=== PATIENT | female | born 1955 | race Caucasian/White ===

== ENCOUNTER 2022-03-03 18:33 | Inpatient (IN) | payer MEDICAID, SELFPAY ==
[2022-03-03 18:20] VITALS: BP 147/76; PULSE 69; RESP 16; TEMP 37; O2SAT 95; BMI 22.8
--- NOTE | 2022-03-03 18:40 | ECG_ITS ---
APPROVED REPORT Exam: Resting ECG HR:68 bpm ECG Measurements Heart Rate 68 AXES IN 223 P 53 QRSd 102 QRS 98 QT 429 T -17 QTc 447 Conclusion SINUS RHYTHM WITH FIRST DEGREE AV BLOCK BORDERLINE RIGHT AXIS DEVIATION [QRS AXIS > 90] ST DEVIATION AND MODERATE T-WAVE ABNORMALITY, CONSIDER LATERAL ISCHEMIA [-0.1+ mV T-WAVE IN I/aVL/V5/V6] ABNORMAL ECG UNCONFIRMED REPORT Electronically signed by : Dominguez Ortiz MD 03/06/2022 08:07:44
--- NOTE | 2022-03-03 18:50 | XR_ITS ---
PROCEDURE INFORMATION: Exam: XR Bilateral Hips Exam date and time: 03/03/2022 7:15 PM Age: 66 years old Clinical indication: Injury or trauma; Fall; Blunt trauma (contusions or hematomas); Left; Hip; Injury date: 03/03/22; Additional info: Fall-left femur pain after a fall - trauma TECHNIQUE: Imaging protocol: XR bilateral hips. Views: 2 views of hips with pelvis when performed. COMPARISON: No relevant prior studies available. FINDINGS: Bones/joints: There is an acute mildly comminuted fracture involving the left femoral neck. No evidence for dislocation of the femoral head. There is superior positioning of the distal femur by approximately 2.5 cm. There is mild varus angulation. No evidence of right hip fracture. There are mild degenerative changes of the symphyseal pubic joint. There are mild degenerative changes of the sacroiliac joints. There are mild degenerative changes in the right hip joint. Ovoid focus of increased density measuring 3 by 1.7 cm overlying the left ischium is seen on the cross-table lateral view anterior to the coccyx suggesting it may reflect potentially soft tissue calcification or potentially calcified peritoneal lesion. Correlate clinically. Joint spaces appear otherwise preserved. Soft tissues: No significant soft tissue edema. No subcutaneous emphysema or radiopaque foreign bodies. IMPRESSION: Acute mildly comminuted fracture of the left femoral neck.
--- NOTE | 2022-03-03 18:50 | XR_ITS ---
PROCEDURE INFORMATION: Exam: XR Left Femur Exam date and time: 03/03/2022 7:19 PM Age: 66 years old Clinical indication: Injury or trauma; Fall; Blunt trauma; Hip; Left; Injury date: 03/03/22; Additional info: Fall-left femur pain after a fall - trauma TECHNIQUE: Imaging protocol: XR Left femur. Views: 2 views. COMPARISON: CR XR HIP BI W PEL1V 03/03/2022 7:15 PM FINDINGS: Bones/joints: Acute fracture of the left femoral neck is incompletely visualized and more optimally evaluated on associated radiographs of the hip from the same date and time. Please reference that report for additional information. The remainder of the femur is without evidence of acute fracture. Joint spaces appear preserved. There is mild diffuse osteopenia. Soft tissues: No significant soft tissue edema. No subcutaneous emphysema or radiopaque foreign bodies. Mild atherosclerotic vascular calcifications involve the femoral arteries.There are mild degenerative changes of the symphyseal pubic joint. IMPRESSION: Incompletely visualized is the previously described acute fracture involving the left femoral neck. No additional acute fractures are seen.
[2022-03-03 19:00] VITALS: BP 159/77; PULSE 70; O2SAT 96
[2022-03-03 19:05] LABS: Basophils % 0.2 % (0.1-2.0); Eosinophils % 0.3 % (0.1-12.0); Hematocrit 28.5 % (37.0-47.0); Hemoglobin 9.5 g/dL (12.2-16.2); Lymphocytes # 0.5 K/mm3 (0.7-4.5); Lymphocytes % 12.5 % (10-50); Mean Corpuscular HGB Conc 33.2 g/dL (31.8-35.4); Mean Corpuscular Hemoglobin 32.1 pg (27.0-31.2); Mean Corpuscular Volume 96.6 fl (81-99); Monocytes # 0.2 K/mm3 (0.1-1.0); Monocytes % 4.9 % (1.7-9.3); Neutrophils # 3.1 K/mm3 (1.8-7.8); Neutrophils % 82.1 % (37.0-80.0); Platelet Count 72 K/mm3 (142-424); Red Blood Count 2.95 M/mm3 (4.20-5.40); Red Cell Distribution Width 16.3 % (11.5-17.5); White Blood Count 3.8 K/mm3 (4.8-10.8)
[2022-03-03 19:09] LABS: Chloride 107 mmol/L (98-107); Potassium 3.6 mmoL/L (3.5-5.1); Sodium 137 mmol/L (136-145)
[2022-03-03 19:12] LABS: Alanine Aminotransferase 33 U/L (12-78); Albumin Level 3.5 g/dl (3.5-5.0); Alkaline Phosphatase 149 U/L (38-126); Anion Gap 12.6 mEq/L (5-15); Aspartate Amino Transferase 51 U/L (14-36); Bilirubin,Total 0.9 mg/dl (0.2-1.3); Blood Urea Nitrogen 53 mg/dl (7-17); Calcium 8.8 mg/dl (8.4-10.2); Carbon Dioxide 21 mmol/L (22.0-30.0); Creatinine Clearance Estimated 16 mL/min (50-200); Estimated Glomerular Filt Rate 16 ml/min (>60); GFR (African American) 20 ML/MIN (>60); Globulin 3.4 g/dL (1.3-3.2); Glucose 386 mg/dl (74-100); Total Protein,Serum 6.9 g/dl (6.3-8.2)
--- NOTE | 2022-03-03 19:39 | XR_ITS ---
PROCEDURE INFORMATION: Exam: XR Chest Exam date and time: 03/03/2022 7:33 PM Age: 66 years old Clinical indication: Other: Trauma protocol; Additional info: Fall TECHNIQUE: Imaging protocol: XR of the chest. Views: 4 or more views. COMPARISON: No relevant prior studies available. FINDINGS: Tubes, catheters and devices: Right IJ central venous catheter is present, distal tip overlying the right atrium. Lungs: There is mild elevation the right hemidiaphragm. A few calcified granulomata are present. The lungs appear clear. No focal areas of consolidation. Pleural spaces: No pleural effusions or appreciable adenopathy. Negative for pneumothorax. Heart/Mediastinum: Cardiac silhouette and pulmonary vasculature are within range of normal. Surgical clips in the right upper quadrant indicate cholecystectomy. Bones/joints: There is no evidence of acute fracture. There is a fracture involving the left proximal humeral neck which has an appearance suggesting remote process. Correlate. IMPRESSION: Negative for an acute cardiopulmonary abnormality.
--- NOTE | 2022-03-03 19:39 | HMH.EDGENADL ---
ED Disposition Clinical Impression: Fracture of femoral neck, left Qualifiers: Encounter type: initial encounter Fracture type: closed Qualified Code(s): S72.002A - Fracture of unspecified part of neck of left femur, initial encounter for closed fracture Disposition: Admitted As Inpatient Condition on Discharge: Fair Referrals: Provider,Referral, [Primary Care Provider] - - Critical Care Critical Care Time: No Attestation: On , the high probability of a clinically significant, sudden or life threatening deterioration of the following system(s) required my full and direct attention, intervention and personal management. The time I documented below is in addition to time spent performing reported procedures but includes the following listed in this critical care notation. Medical Decision Making - Medical Records Medical records reviewed: Yes: I reviewed the patient's medical records. - Edu Inquiry Pt receiving controlled substance: Yes (For acute pain) Edu was queried for this patient: No Risks and benefits of using a controlled substance: were not discussed with pt by me Vital Signs: 03/03/22 18:20 03/03/22 19:00 03/03/22 20:00 Temperature 98.6 F Temperature Source Oral Pulse Rate 70 76 Pulse Rate [Right] 69 Respiratory Rate 16 Blood Pressure 159/77 H 177/92 H Blood Pressure [Right Arm] 147/76 H Blood Pressure Mean 104 Blood Pressure Mean [Right Arm] 99 Blood Pressure Source [Right Arm] Automatic Cuff Blood Pressure Position [Right Arm] Sitting 02 Sat by Pulse Oximetry 95 96 97 Oxygen Delivery Method Room Air Room Air Room Air 03/03/22 20:30 Temperature Temperature Source Pulse Rate 75 Pulse Rate [Right] Respiratory Rate Blood Pressure 172/77 H Blood Pressure [Right Arm] Blood Pressure Mean Blood Pressure Mean [Right Arm] Blood Pressure Source [Right Arm] Blood Pressure Position [Right Arm] 02 Sat by Pulse Oximetry 95 Oxygen Delivery Method - Lab Data Lab results reviewed: Yes: I reviewed the patient's lab results. Lab Results 03/03/22 18:42: WBC 3.8 L, RBC 2.95 L, Hgb 9.5 L, Hct 28.5 L, MCV 96.6, MCH 32.1 H, MCHC 33.2, RDW 16.3, Plt Count 72 L, MPV 10.0, Neut % (Auto) 82.1 H, Lymph % (Auto) 12.5, [place] % (Auto) 4.9, Eos % (Auto) 0.3, Baso % (Auto) 0.2, Neut # (Auto) 3.1, Lymph # (Auto) 0.5 L, [place] # (Auto) 0.2, Eos # (Auto) 0.0, Baso # (Auto) 0.0 03/03/22 18:42: Sodium 137, Potassium 3.6, Chloride 107, Carbon Dioxide 21 L, Anion Gap 12.6, BUN 53 H, Creatinine 2.90 H, Estimated Creat Clear 16, Estimated GFR 16 L*, Est GFR ( Amer) 20 L, Glucose 386 H, Calcium 8.8, Total Bilirubin 0.9, AST 51 H, ALT 33, Alkaline Phosphatase 149 H, Total Protein 6.9, Albumin 3.5, Globulin 3.4 H, Albumin/Globulin Ratio 1.0 L 03/03/22 18:42: Phosphorus 4.5, Magnesium 1.7, Troponin I < 0.01 03/03/22 19:46: SARS-CoV-2 (PCR) Not detected, Influenza A Untype (PCR) Not detected, Influenza Type B (PCR) Not detected 03/03/22 19:56: Urine Color Yellow, Urine Appearance Clear, Urine pH 5.0, Ur Specific [place] 1.015, Urine Protein Trace, Urine Glucose (UA) 3+, Urine Ketones Negative, Urine Blood 1+, Urine Nitrate Negative, Urine Bilirubin Negative, Urine Urobilinogen 0.2, Ur Leukocyte Esterase Negative, Urine RBC 5-10, Urine WBC Occasional, Urine Bacteria Trace 03/03/22 20:45: PT 12.3, INR 1.10 03/03/22 20:45: Lactate 1.7 03/03/22 20:45: Ammonia 24 Result diagrams: 03/03/22 18:42 03/03/22 18:42 Orders (Tests/Meds): ED MEDICATIONS Generic Name Dose Route Start Last Admin Trade Name Freq PRN Reason Stop Dose Admin Sodium Chloride 10 ml 03/03/22 18:50 Sodium Chloride 0.9% 10ml Flush Syringe IV 04/02/22 18:49 NEEDED PRN Maintain IV Site Discontinued Medications Generic Name Dose Route Start Last Admin Trade Name Freq PRN Reason Stop Dose Admin Fentanyl Citrate 50 mcg 03/03/22 18:52 03/03/22 19:11 Fentanyl 100mcg/2ml Vial IV 03/03/22 18:53 50 m
--- NOTE | 2022-03-03 19:40 | PC.NURSE ---
Pt gone to RAD
--- NOTE | 2022-03-03 19:45 | PC.NURSE ---
Pt back from RAD
[2022-03-03 19:52] LABS: Coronavirus 19, PCR Not Detected (NotDetected); Influenza A, PCR Not Detected (NotDetected); Influenza B, PCR Not Detected (NotDetected)
[2022-03-03 20:00] VITALS: BP 177/92; PULSE 76; O2SAT 97
--- NOTE | 2022-03-03 20:00 | PC.NURSE ---
#16 joseph cath placed with immediate return of clear yellow urine.
[2022-03-03 20:01] LABS: Microscopic, Urine URINE MICROSCOPIC (MICROSCOPIC)
[2022-03-03 20:02] LABS: Appearance,Urine CLEAR (Clear); Bilirubin,Urine Negative (Negative); Blood, Urine 1+ (Negative); Color,Urine YELLOW (Yellow); Glucose,Urine (UA) 3+ (Negative); Ketones,Urine Negative (Negative); Leukocyte Esterase,Urine Negative (Negative); Nitrate,Urine Negative (Negative); Protein,Urine TRACE (Negative); Specific Gravity, Urine 1.015 (1.005-1.030); Urobilinogen,Urine 0.2 EU/dl (0.2)
[2022-03-03 20:30] VITALS: BP 172/77; PULSE 75; O2SAT 95
--- NOTE | 2022-03-03 20:34 | CT_ITS ---
PROCEDURE INFORMATION: Exam: CT Cervical Spine Without Contrast Exam date and time: 03/03/2022 8:46 PM Age: 66 years old Clinical indication: Injury or trauma; Fall; Blunt trauma; Additional info: Fall, pain TECHNIQUE: Imaging protocol: Computed tomography images of the cervical spine without contrast. Radiation optimization: All CT scans at this facility use at least one of these dose optimization techniques: automated exposure control; mA and/or kV adjustment per patient size (includes targeted exams where dose is matched to clinical indication); or iterative reconstruction. COMPARISON: CR XR CHEST AP 03/03/2022 7:33 PM FINDINGS: Bones/joints: Loss of normal curvature of the spine, alignment of the vertebral bodies is grossly normal. No evidence of acute compression fracture or deformity in the cervical spine. No displaced fracture involving the vertebral bodies or their posterior elements. Facet joints are normally aligned without facetal dislocation or subluxation. No fracture of the dens, lateral C1-C2 articulation, atlantooccipital joints and central atlantodental joint are unremarkable. Discs/Spinal canal/Neural foramina: Chronic degenerative changes in the visualized cervical spine. Lungs: NA Soft tissues: Pre-and paravertebral soft tissues are grossly normal. Near complete opacification of the RIGHT sphenoid sinus with fluid level. IMPRESSION: 1. Chronic degenerative changes without an acute cervical spine injury or abnormality. 2. RIGHT sphenoid sinusitis.
--- NOTE | 2022-03-03 20:34 | CT_ITS ---
PROCEDURE INFORMATION: Exam: CT Head Without Contrast Exam date and time: 03/03/2022 8:46 PM Age: 66 years old Clinical indication: Injury or trauma; Fall; Blunt trauma (contusions or hematomas); Additional info: Fall, coagulopathy TECHNIQUE: Imaging protocol: Computed tomography of the head without contrast. Radiation optimization: All CT scans at this facility use at least one of these dose optimization techniques: automated exposure control; mA and/or kV adjustment per patient size (includes targeted exams where dose is matched to clinical indication); or iterative reconstruction. COMPARISON: No relevant prior studies available. FINDINGS: Brain: Moderately advanced chronic microvascular ischemic disease without acute intraparenchymal hemorrhage and no obvious acute ischemic stroke. No intra-or extra-axial fluid collection, no supra-or infratentorial mass, no mass effect or midline shift. Cerebral ventricles: Dilated ventricles, sulci and basal cisterns due to generalized atrophy/chronic ischemic changes without evidence of hydrocephalus. Paranasal sinuses: Near complete opacification of the RIGHT sphenoid sinus with fluid level. Mastoid air cells: No mastoid effusion. Bones/joints: Visualized skull bones are grossly normal. Soft tissues: Moderately severe atherosclerotic calcification of the intra and extracranial arteries. IMPRESSION: 1. Moderately advanced chronic microvascular disease and generalized atrophy without acute intracranial abnormality. 2. No evidence of acute hemorrhage, mass lesion or obvious acute ischemic infarction. 3. RIGHT sphenoid sinusitis.
--- NOTE | 2022-03-03 20:35 | CT_ITS ---
PROCEDURE INFORMATION: Exam: CT Thoracic Spine Without Contrast Exam date and time: 03/03/2022 8:49 PM Age: 66 years old Clinical indication: Injury or trauma; Fall; Additional info: Fall, pain TECHNIQUE: Imaging protocol: Computed tomography images of the thoracic spine without contrast. Radiation optimization: All CT scans at this facility use at least one of these dose optimization techniques: automated exposure control; mA and/or kV adjustment per patient size (includes targeted exams where dose is matched to clinical indication); or iterative reconstruction. COMPARISON: CT CERVICAL SPINE WO CON 03/03/2022 8:46 PM FINDINGS: Tubes, catheters and devices: Large-bore right sided central venous catheter which is partially visualized. Partially calcified mediastinal lymph nodes. Vertebrae: Scoliosis with degenerative changes. No acute fracture. Soft tissues: Unremarkable. Vasculature: Calcified atherosclerosis. No aneurysm. Heart: Coronary artery calcifications. Gallbladder and bile ducts: Status post cholecystectomy. IMPRESSION: No acute findings.
--- NOTE | 2022-03-03 20:35 | CT_ITS ---
PROCEDURE INFORMATION: Exam: CT Lumbar Spine Without Contrast Exam date and time: 03/03/2022 8:52 PM Age: 66 years old Clinical indication: Injury or trauma; Fall; Additional info: Pain back TECHNIQUE: Imaging protocol: Computed tomography images of the lumbar spine without contrast. Radiation optimization: All CT scans at this facility use at least one of these dose optimization techniques: automated exposure control; mA and/or kV adjustment per patient size (includes targeted exams where dose is matched to clinical indication); or iterative reconstruction. COMPARISON: CT THORACIC SPINE WO CON 03/03/2022 8:49 PM FINDINGS: Vertebrae: Scoliosis. No acute fracture. Kidneys and ureters: Punctate nonobstructing renal calculi without hydronephrosis. Vasculature: Calcified atherosclerosis. No aneurysm. Soft tissues: Calcified splenic granulomas. IMPRESSION: No acute findings.
--- NOTE | 2022-03-03 20:35 | CT_ITS ---
PROCEDURE INFORMATION: Exam: CT Pelvis Without Contrast; Skeletal Exam date and time: 03/03/2022 8:55 PM Age: 66 years old Clinical indication: Pain and injury or trauma; Fall; Blunt trauma (contusions or hematomas); Left; Hip; Additional info: Hip pain, fall TECHNIQUE: Imaging protocol: Computed tomography images of the pelvis without contrast. Exam focused on the skeletal structures. Radiation optimization: All CT scans at this facility use at least one of these dose optimization techniques: automated exposure control; mA and/or kV adjustment per patient size (includes targeted exams where dose is matched to clinical indication); or iterative reconstruction. COMPARISON: CR XR HIP BI W PEL1V 03/03/2022 7:15 PM FINDINGS: Stomach and bowel: Moderate to large stool burden within the colon. No bowel obstruction. Urinary bladder: [place] Valle catheter within the urinary bladder. Arteries: Calcified atherosclerosis. No aneurysm. Bones/joints: Mildly comminuted, impacted, varus angulated fracture at the left femoral head neck junction. Soft tissues: Unre no radiopaque foreign body markable. IMPRESSION: Mildly comminuted, impacted, varus angulated fracture at the left femoral head neck junction.
[2022-03-03 20:41] LABS: Bacteria,Urine Trace /lpf; WBC,Urine Occasional #/hpf (0-3)
[2022-03-03 20:51] LABS: Magnesium 1.7 mg/dl (1.6-2.3); Phosphorous 4.5 mg/dl (2.5-4.5)
[2022-03-03 21:06] LABS: Ammonia 24 umol/L (9-30); Lactic Acid 1.7 mmol/L (0.7-2.1)
[2022-03-03 21:07] LABS: Prothrombin Time 12.3 seconds (10.1-12.5)
[2022-03-03 21:26] LABS: Troponin I < 0.01 ng/ml (0.00-0.034)
--- NOTE | 2022-03-03 21:42 | PC.NURSE ---
Dr. Barth s/w Dr. Jones
--- NOTE | 2022-03-03 22:01 | PC.NURSE ---
on phone with dr gutierrez @ this time
[2022-03-03 22:07] LABS: Activated Partial Thrombo Time 27.3 seconds (22.8-30.6)
[2022-03-03 22:19] VITALS: BMI 22.2
[2022-03-03 22:22] VITALS: BP 154/72; PULSE 76; RESP 16; TEMP 37; O2SAT 95
[2022-03-03 23:44] VITALS: BP 176/83; PULSE 82; RESP 18; TEMP 36.9; O2SAT 96
[2022-03-04] VITALS (14 sets, daily range): BP systolic 152–198; BP diastolic 63–90; PULSE 75–88; RESP 15–20; TEMP 36.8–38; O2SAT 90–96; BMI 22.2
[2022-03-04 05:13] LABS: POC Glucose,Bedside 142 (70-110)
[2022-03-04 06:06] LABS: Basophils % 0.3 % (0.1-2.0); Eosinophils # 0.1 K/mm3 (0.0-0.4); Eosinophils % 2.2 % (0.1-12.0); Hematocrit 25.9 % (37.0-47.0); Hemoglobin 8.8 g/dL (12.2-16.2); Lymphocytes # 0.6 K/mm3 (0.7-4.5); Mean Corpuscular Hemoglobin 32.4 pg (27.0-31.2); Mean Corpuscular Volume 95.4 fl (81-99); Mean Platelet Volume 8.4 fl (7.4-10.4); Monocytes # 0.3 K/mm3 (0.1-1.0); Monocytes % 7.7 % (1.7-9.3); Neutrophils # 2.3 K/mm3 (1.8-7.8); Neutrophils % 71.8 % (37.0-80.0); Platelet Count 63 K/mm3 (142-424); Red Blood Count 2.71 M/mm3 (4.20-5.40); Red Cell Distribution Width 16.3 % (11.5-17.5); White Blood Count 3.2 K/mm3 (4.8-10.8)
[2022-03-04 06:16] LABS: Prothrombin Time 12.3 seconds (10.1-12.5)
[2022-03-04 06:22] LABS: Chloride 110 mmol/L (98-107); Sodium 139 mmol/L (136-145)
[2022-03-04 06:23] LABS: Potassium 3.2 mmoL/L (3.5-5.1)
[2022-03-04 06:25] LABS: Alanine Aminotransferase 28 U/L (12-78); Alkaline Phosphatase 135 U/L (38-126); Aspartate Amino Transferase 49 U/L (14-36); Bilirubin,Total 0.8 mg/dl (0.2-1.3); Blood Urea Nitrogen 46 mg/dl (7-17); Creatinine Clearance Estimated 19 mL/min (50-200); Estimated Glomerular Filt Rate 20 ml/min (>60); GFR (African American) 25 ML/MIN (>60)
[2022-03-04 06:26] LABS: Albumin/Globulin Ratio 0.9 (1.1-1.8); Anion Gap 7.2 mEq/L (5-15); Calcium 8.5 mg/dl (8.4-10.2); Carbon Dioxide 25 mmol/L (22.0-30.0); Globulin 3.4 g/dL (1.3-3.2); Glucose 140 mg/dl (74-100); Total Protein,Serum 6.4 g/dl (6.3-8.2)
--- NOTE | 2022-03-04 07:27 | HMH.PHAVTE ---
[facility] Pharmacy VTE Monitoring - Patient Demographics Admission date: 03/03/22 Report Date: 03/04/22 Time: 07:27 Allergies/Adverse Reactions: Patient Allergies pseudoephedrine [From Actifed] Allergy (Mild, Verified 03/03/22 18:50) triprolidine [From Actifed] Allergy (Mild, Verified 03/03/22 18:50) Height: 1.52 m Weight: 51.487 kg Patient Problems: Current Active Problems Fracture of femoral neck, left (Acute) - VTE Risk Labs: VTE Related Lab Results Hgb 8.8 g/dL (12.2-16.2) L 03/04/22 05:48 Hct 25.9 % (37.0-47.0) L 03/04/22 05:48 Plt Count 63 K/mm3 (142-424) L 03/04/22 05:48 PT 12.3 seconds (10.1-12.5) 03/04/22 05:48 INR 1.10 (0.9-1.1) 03/04/22 05:48 APTT 27.3 seconds (22.8-30.6) 03/03/22 20:47 BUN 46 mg/dl (7-17) H 03/04/22 05:48 Creatinine 2.40 mg/dl (0.52-1.04) H 03/04/22 05:48 Estimated Creat Clear 19 mL/min (50-200) 03/04/22 05:48 Was VTE Risk Assessment Performed: Yes VTE Score: 5 VTE Risk Level: Low Risk - Prophylaxis VTE Prophylaxis Ordered?: Yes Types of VTE Prophylaxis: TEDS Knee High Location of Applied Device: Bilateral Lower Extremeties
--- NOTE | 2022-03-04 09:09 | HMH.HP ---
*Admission Date: 03/03/22 <Abby Chery - 03/04/22 09:37> *Chief complaint: Fall with fracture of left hip. <Abby Chery - 03/04/22 09:37> *History of present illness: Ms. Whalen is a 66-year-old female with a history of coronary artery disease, diabetes mellitus, previous stroke, liver failure, and chronic kidney disease previously on dialysis. She is followed by several specialist for each of her diseases. She presented to [facility] emergency room for evaluations per EMS after a fall at home. She states she was walking to the bathroom, lost her balance and fell. She describes usually being unsteady on her feet and uses a walker with help. She did try to ambulate without any assistance. She lives with family who immediately found her and called the ambulance when they were unable to assist her to and upright position. She had left hip plain. She denies having any chest pain or shortness of breath before or after the fall. With evaluation in the emergency room She had multiple x-rays/CTs completed to include chest x-ray which was negative for any acute process, CT of the cervical spine which showed chronic degenerative changes without an acute cervical spine injury and a right sphenoid sinusitis; Femur x-ray which indicated an acute fracture involving the left femoral neck: Head CT which indicated Moderately advanced chronic microvascular disease and generalized atrophy without any acute intracranial abnormality.;Lumbar spine CT with no acute findings;Thoracic spine CT with no acute findings ; Pelvis CT with note of the acute angulated fracture of the left femoral head. Further testing revealed a CBC with a white blood cell count of 3800 and hemoglobin of 9.5 and hematocrit of 28.5.Platelet count was noted to be 72. Blood chemistries showed low carbon dioxide at 21 BUN was 53 and creatinine was 2.9. GFR was 16. Blood sugar 386. Liver function studies with an elevated AST of 51 and alkaline phosphatase of 149.Morning was normal at 24. She received Zofran for nausea. She was admitted for further evaluation and treatment with an orthopedic consult. This a.m. patient has some left hip discomfort. She is n.p.o. with her orthopedic consult. She will also have a cardiology consult. <Abby Chery - 03/04/22 09:37> [facility] History Medical History: Reports:: Coronary Artery Disease, Cerebrovascular Accident, Diabetes Mellitus Type 2, Heart Murmur, Hyperlipidemia, Hypertension Denies:: Cancer, Diabetes Mellitus Type 1, MRSA <Abby Chery 03/04/22 09:37> *Have you ever received a pneumonia vaccine?: Yes <Abby Chery 03/04/22 09:37> *Have you received a flu vaccine this season?: Yes <Abby Chery 03/04/22 09:37> Other Medical History: Reports: Anemia, Arthritis, Cataracts, Hypothyroidism, Liver Disease, Thyroid Disease <Abby Chery 03/04/22 09:37> Laterality Cases: Bilateral: Tonsillectomy, Other <Abby Chery 03/04/22 09:37> Other Surgeries: Yes: Cardiac Catheterization, Cholecystectomy, Colonoscopy, EGD, Tubal Ligation <Abby Chery 03/04/22 09:37> Amputation: No <Abby Chery 03/04/22 09:37> Fractures: Yes (Left ankle) <Abby Chery 03/04/22 09:37> - *Social History Last grade of school completed: 11th or 12th <Abby Chery 03/04/22 09:37> Smoking Status: Never smoker <Abby Chery 03/04/22 09:37> Alcohol Intake: never <Abby Chery 03/04/22 09:37> *Occupational Status:: disabled <Abby Chery 03/04/22 09:37> Housing: house <Abby Chery 03/04/22 09:37> Household Members: family, children, caregiver <Abby Chery 03/04/22 09:37> *Travel in the last 8 weeks: None <Abby Chery 03/04/22 09:37> Family Hx:: Cancer, Coronary Artery Disease, Diabetes, Heart Attack, Hyperlipidemia, Hypertension, Stroke, Thyroid Disorder, Alcoholism <Abby Chery 03/04/22 09:37> Review of Systems - Review of Systems Review of systems:: other (Poor remote historian) <Abby Chery
--- NOTE | 2022-03-04 10:47 | HMH.ORTHOCON ---
*Admission Date: 03/03/22 <Jessica Woodard 03/04/22 10:51> *Reason for consult:: Left femoral neck fracture <Jessica Woodard 03/04/22 10:51> *History of present illness: Patient is a 66-year-old female admitted to the acute inpatient service yesterday 03/03/2022 after sustaining a fall at home. She states that she was getting out of bed to walk to the bathroom yesterday when she lost her balance and fell. She states that she had immediate pain in her left hip at that time and was unable to stand, so she was subsequently brought to the [facility] emergency room for evaluation via EMS. This morning she reports pain in her left hip but states that it is well controlled with rest and as needed pain medication. She denies any other injuries, shortness of breath, chest pain, palpitations, or distal tingling/numbness. She states that she lives at home with her son and cxzajlal-in-she and frequently uses a wheelchair to ambulate, occasionally using a walker. Her past medical history significant for coronary artery disease, diabetes mellitus, previous CVA, liver failure, and chronic kidney disease previously on dialysis. She denies any other symptoms or concerns at this time. <Jessica Woodard 03/04/22 14:18> [facility] History Medical History: Reports:: Coronary Artery Disease, Cerebrovascular Accident, Diabetes Mellitus Type 2, Heart Murmur, Hyperlipidemia, Hypertension Denies:: Cancer, Diabetes Mellitus Type 1, MRSA <Jessica Woodard 03/04/22 10:51> *Have you ever received a pneumonia vaccine?: Yes <Jessica Woodard 03/04/22 10:51> *Have you received a flu vaccine this season?: Yes <Jessica Woodard 03/04/22 10:51> Other Medical History: Reports: Anemia, Arthritis, Cataracts, Hypothyroidism, Liver Disease, Thyroid Disease <Jessica Woodard 03/04/22 10:51> Laterality Cases: Bilateral: Tonsillectomy, Other <Jessica Woodard 03/04/22 10:51> Other Surgeries: Yes: Cardiac Catheterization, Cholecystectomy, Colonoscopy, EGD, Tubal Ligation <Jessica Woodard 03/04/22 10:51> Amputation: No <Jessica Woodard 03/04/22 10:51> Fractures: Yes (Left ankle) <Jessica Woodard 03/04/22 10:51> - *Social History Last grade of school completed: 11th or 12th <Jessica Woodard 03/04/22 10:51> Smoking Status: Never smoker <Jessica Woodard 03/04/22 10:51> Alcohol Intake: never <Jessica Woodard 03/04/22 10:51> *Occupational Status:: disabled <Jessica Woodard 03/04/22 10:51> Housing: house <Jessica Woodard 03/04/22 10:51> Household Members: family, children, caregiver <Jessica Woodard 03/04/22 10:51> *Travel in the last 8 weeks: None <Jessica Woodard 03/04/22 10:51> Family Hx:: Cancer, Coronary Artery Disease, Diabetes, Heart Attack, Hyperlipidemia, Hypertension, Stroke, Thyroid Disorder, Alcoholism <Jessica Woodard 03/04/22 10:51> Review of Systems - Review of Systems Review of systems:: pertinent systems reviewed and negative unless documented below <Jessica Woodard 03/04/22 13:17> - Constitutional Denies anorexia, Denies body ache(s), Denies chills, Denies fatigue, Denies fever(s), Denies night sweats, Denies weight gain <Jessica Woodard 03/04/22 13:17> - Eyes Denies blind spots, Denies blurry vision, Denies change in vision <Jessica Woodard 03/04/22 13:17> - ENT Denies poor balance, Denies dizziness, Denies mouth pain, Denies nasal congestion, Denies nasal discharge, Denies neck lump, Denies neck pain, Denies sore throat <Jessica Woodard 03/04/22 13:17> - *Cardiovascular Denies chest pain, Denies chest pain at rest, Denies shortness of breath, Denies shortness of breath with activity, Denies radiating jaw, neck or arm pain <Jessica Woodard 03/04/22 13:17> - *Respiratory Denies chest congestion, Denies cough, Denies pain on inspiration, Denies wheezing <Jessica Woodard - 03/04/22 13:17> - *Gastrointestinal Denies abdominal pain, Denies change in stools, Denies constipation, Denies loose
--- NOTE | 2022-03-04 11:21 | CA_ITS ---
APPROVED REPORT EXAM: Comprehensive 2D, Doppler, and color-flow Echocardiogram Fitting Room Inspector: Ekaterina Mcgovern, RCS, RVS Ht: 4 ft 11 in Wt: 113lbs BSA: 1.45 BP: 198/76 mmHg Indications: PRE-OP LEFT HIP FRACTURE, CAD, CKD, CVA, MURMUR 2D Dimensions Aortic Root 2.34 cm F: 2.7 - 3.3 LA Volume 53.60 mL Left Atrium 3.13 cm F: 2.7 - 3.8 LA Volume Index 37.22 mL/m2 (M/F) 16-34 LVOT 1.58 cm (M/F) 1.5-2.5 M-Mode Dimensions RVDd 2.03 cm (0.9-2.6) LA Diam 2.85 cm (1.9-4.0) LVDd 4.41 cm (3.5-5.7) Ao Diam 3.16 cm (2.0-3.7) LVDs 2.90 cm (3.5-5.7) IVSd 0.93 cm (0.6-1.1) PWd 0.78 cm (0.6-1.1) EF (Teich) 63.50% EPSs 1.41 cm FS 34.20% EDV (Teich) 88.20 mL TAPSE 2.30 (<1.7) ESV (Teich) 32.20 mL LV Diastology E Decel Time 190.00 (160-240 msec) E/A Ratio 1.30 MED E' 6.00 (< 7 cm/sec) MED A' 8.90 cm/s E'/MED E' Ratio 20.57 (>14) LAT E' 10.50 (<10 cm/sec) LAT A' 10.20 cm/s E/LAT E' Ratio 11.75 (>14) Aortic Valve LVOT Max 111.00 (70-110 cm/s) LVOT VTI 25.31 cm AoV Peak João. 196.00 (50-130 cm/s) AO Peak GR. 15.40 mmHg AO Mean GR. 7.70 (<5 mmHg) AO VTI 44.44 (18-25 cm) CRISS (VTI) 1.12 (2.5-4.5 cm2) Mitral Valve MV A Velocity 95.00 (40-130 cm/s) E/A Ratio 1.30 MV Decel. Time 190.00 (160-240 ms) MV Mean Gr. 3.10 (<2mmHg) MV PHT 57.00 ms Pulmonary Valve PV Peak Velocity 82.00 (50-150 cm/s) OR End VMAX 200.00 cm/s Tricuspid Valve TR P. Velocity 248.00 cm/s RAP Estimate 10.00 mmHg RVSP 34.60 mmHg Left Ventricle Left atrium is mildly enlarged, left ventricle is normal size, mild concentric left ventricular hypertrophy, estimated ejection fraction 55% with no regional wall motion abnormality, grade 2 diastolic dysfunction seen with tissue Doppler evidence of raise left atrial pressure. Right Ventricle Right atrium and right ventricle are normal size and contractility. Aortic Valve Aortic valve is thickened and calcified without Doppler evidence of aortic stenosis or aortic insufficiency. Mitral Valve Mitral valve is minimally thickened, there is mild mitral regurgitation. Tricuspid Valve Tricuspid valve grossly normal, there is mild tricuspid regurgitation, calculated right ventricular systolic pressure 35 mmHg. Pulmonic Valve Pulmonic valve is poorly visualized. Great Vessels Aortic root is normal size. Inferior vena cava is poorly visualized. Pericardium No significant pericardial effusion noted. Conclusion 1. Mildly enlarged left atrium, normal left ventricular size, mild concentric left ventricular hypertrophy, estimated ejection fraction 55% with no regional wall motion abnormality, grade 2 diastolic dysfunction seen with tissue Doppler evidence of raise left atrial pressure. 2. Thickened and calcified aortic valve without significant aortic stenosis or aortic insufficiency. 3. Mild mitral and tricuspid regurgitation, calculated right ventricular systolic pressure is 35 mmHg. 4. No significant pericardial effusion noted. 5. Inferior vena cava is poorly visualized. Electronically signed by : Kyle Angelo MD 03/04/2022 20:35:51
[2022-03-04 11:27] LABS: POC Glucose,Bedside 160 (70-110)
--- NOTE | 2022-03-04 11:43 | HMH.PHAINT ---
MEDICATION RECONCILIATION COMPLETED ON PATIENT USING EXTERNAL FILL HISTORY FROM PHARMACY. -PETER YOU, MARYJOD
--- NOTE | 2022-03-04 12:00 | HMH.CNCARD ---
History of Present Illness Consult date: 03/04/22 Requesting physician: Tylor Covarrubias Consult reason: pre-op evaluation Chief complaint: left hip pain History of present illness: This is a 66-year-old white female who presented to the emergency department after a fall at home. The patient states that she was walking to the bathroom lost her balance and fell. She states that she is generally unsteady on her feet and uses a walker but tried to ambulate without assistance to the bathroom and fell. She lives with family who immediately found her and called the ambulance. The patient had immediate left hip pain. She denied any chest pain or pressure prior to the fall. She denies any shortness of breath or edema. She denies any fever, chills, nausea, vomiting, diarrhea, PND or orthopnea. Her only complaint this morning is that her left hip is hurting. She is very eager to undergo surgery to improve her pain. She does have a history of coronary artery disease, diabetes, CVA and chronic kidney disease previously on dialysis. The patient states that she no longer takes dialysis and she believes her heart doctor is in [facility]. She states that she was last seen in July and everything checked out well. [facility] History I have reviewed the patient's past medical history: Yes Medical History: Reports:: Coronary Artery Disease, Cerebrovascular Accident, Diabetes Mellitus Type 2, Heart Murmur, Hyperlipidemia, Hypertension Denies:: Cancer, Diabetes Mellitus Type 1, MRSA *Have you ever received a pneumonia vaccine?: Yes *Have you received a flu vaccine this season?: Yes Other Medical History: Reports: Anemia, Arthritis, Cataracts, Hypothyroidism, Liver Disease, Thyroid Disease Laterality Cases: Bilateral: Tonsillectomy, Other Other Surgeries: Yes: Cardiac Catheterization, Cholecystectomy, Colonoscopy, EGD, Tubal Ligation Amputation: No Fractures: Yes (Left ankle) - *Social History Last grade of school completed: 11th or 12th Smoking Status: Never smoker Alcohol Intake: never *Occupational Status:: disabled Housing: house Household Members: family, children, caregiver *Travel in the last 8 weeks: None Family Hx:: Cancer, Coronary Artery Disease, Diabetes, Heart Attack, Hyperlipidemia, Hypertension, Stroke, Thyroid Disorder, Alcoholism Meds Home Medications Medication Instructions Recorded Confirmed Type Amitriptyline HCl [Elavil 50mg 50 mg PO HS 03/03/22 03/04/22 History tablet] Atorvastatin Calcium [Lipitor 40mg 40 mg PO HS 03/03/22 03/04/22 History Tab] Insulin Glargine,Hum.rec.anlog 47 units SQ DAILY 03/03/22 03/04/22 History [Lantus Solostar 100 Units/mL 3mL flexpen] Lactulose [Lactulose 20gm/30ml 20 gm PO DAILYP PRN 03/03/22 03/04/22 History Oral Soln] Levothyroxine Sodium 50 mcg PO DAILY 03/03/22 03/04/22 History [Levothyroxine 50mcg (0.05mg) Tab] NIFEdipine [Procardia Xl] 60 mg PO DAILY 03/03/22 03/04/22 History Omeprazole [Omeprazole 40mg 40 mg PO DAILY 03/03/22 03/04/22 History Capsule] Oxycodone HCl/Acetaminophen 1 each PO TIDP PRN 03/03/22 03/04/22 History [Oxycodone-Acetaminophen 10-325] Rifaximin [Xifaxan 550mg Tablet] 550 mg PO BID 03/03/22 03/04/22 History Sertraline HCl [Zoloft] 100 mg PO HS 03/03/22 03/04/22 History Ursodiol 500 mg PO BID 03/03/22 03/04/22 History polyethylene glycoL 3350 [Miralax 17 gm PO DAILY 03/03/22 03/04/22 History Powder] Aspirin [Aspirin 81mg EC Tab] 81 mg PO DAILY 03/04/22 03/04/22 History Ergocalciferol (Vitamin D2) 50,000 units PO WEEKLY 03/04/22 03/04/22 History [Drisdol 50,000 units (1.25mg) capsule] Allergies Allergy/AdvReac Type Severity Reaction Status Date / Time pseudoephedrine Allergy Mild Verified 03/03/22 18:50 [From Actifed] triprolidine [From Actifed] Allergy Mild Verified 03/03/22 18:50 Exam Vital signs and Labs for Last 24 Hours: Temp Pulse Resp BP Pulse Ox 98.5 F 88 17 198/76 H 95
--- NOTE | 2022-03-04 12:08 | CA_ITS ---
FINAL REPORT TECHNIQUE: Color Doppler, duplex Doppler and love scale sonography of the bilateral neck arterial vasculature was performed. Velocities were measured in the carotid arteries. Stenosis evaluation based on the validated velocity criteria. CLINICAL HISTORY: right carotid bruit, cva, caD FINDINGS: The peak systolic velocity of the right common carotid artery is 113 cm/s. The peak systolic velocity of the right internal carotid artery is 139 cm/s and end diastolic velocity 37 cm/s. The ICA/CCA ratio is 1.2. A moderate amount of plaque is present. The right external carotid artery is patent. The right vertebral artery is patent with antegrade flow. The peak systolic velocity of the left common carotid artery is 94 cm/s. The peak systolic velocity of the left internal carotid artery is 135 cm/s and end diastolic velocity 20 cm/s. The ICA/CCA ratio is 1.4. A moderate amount of plaque is present. The left external carotid artery is patent.The left vertebral artery is patent with antegrade flow. IMPRESSION: Less than 50% bilateral carotid stenosis. Bilateral patent vertebral arteries with antegrade flow. Reviewed, Interpreted and Dictated by Kelby Ngo MD Transcribed by Yamile Finley Authenticated by Kelby Ngo MD on 03/04/2022 04:44:50 PM [facility]
[2022-03-04 14:17] LABS: Hemoglobin A1C 6.8 % (4.0-6.0)
--- NOTE | 2022-03-04 15:02 | DIET.NUTRFU ---
This RD spoke to patient, she triggered for stating she has chewing or swallowing issues upon admit. She did not have teeth in upon visit, but reports she wears when eating. Currently NPO for hip sx. She recalls seeing a DEALER ACCOUNTS INVESTIGATOR in the past but does not recall recommendations. She lives at home with family who prepare her meals, normally something soft. Notified nursing she may benefit from [employer]ER [employer]OUNTS INVESTIGATOR eval when oral diet is appropriate.
--- NOTE | 2022-03-04 16:43 | PC.NURSE ---
Updated family on estimated time of surgery. This RN explained to family that they may wait in the OR waiting room during surgery.
--- NOTE | 2022-03-04 16:53 | PC.NURSE ---
Pt has slept majority of this shift. Pt has c/o left hip pain x2 and has been medicated per JAN w/ favorable results. Pt remains on RA. No coughing or SOB noted. Scud placed on right leg for VTE. Del Valle cath draining cloudy, dark yellow urine Family has been updated t/o the day regarding POC and surgery time. No other acute changes.
[2022-03-04 18:30] LABS: POC Glucose,Bedside 139 (70-110)
--- NOTE | 2022-03-04 20:07 | PC.NURSE ---
Patient history and data evaluated. Consulted with Dr Jones and Dr Brooks and decision was made to delay case. Orders given. I spoke extensively with family.
[2022-03-04 21:25] LABS: Basophils % 0.1 % (0.1-2.0); Eosinophils # 0.1 K/mm3 (0.0-0.4); Eosinophils % 1.7 % (0.1-12.0); Hematocrit 29.1 % (37.0-47.0); Hemoglobin 9.6 g/dL (12.2-16.2); Lymphocytes # 0.8 K/mm3 (0.7-4.5); Lymphocytes % 14.4 % (10-50); Mean Corpuscular HGB Conc 32.9 g/dL (31.8-35.4); Mean Corpuscular Volume 94.1 fl (81-99); Mean Platelet Volume 8.4 fl (7.4-10.4); Monocytes # 0.3 K/mm3 (0.1-1.0); Monocytes % 5.3 % (1.7-9.3); Neutrophils # 4.2 K/mm3 (1.8-7.8); Neutrophils % 78.5 % (37.0-80.0); Platelet Count 86 K/mm3 (142-424); Red Blood Count 3.09 M/mm3 (4.20-5.40); Red Cell Distribution Width 15.6 % (11.5-17.5); White Blood Count 5.3 K/mm3 (4.8-10.8)
[2022-03-05] VITALS (39 sets, daily range): BP systolic 88–212; BP diastolic 40–98; PULSE 62–85; RESP 12–22; TEMP 6.1–43; O2SAT 91–97; BMI 22.1
[2022-03-05 05:59] LABS: POC Glucose,Bedside 132 (70-110)
--- NOTE | 2022-03-05 06:00 | PC.NURSE ---
Patient has been hypertensive this RN's shift. Patient responded well with the hydralazine and has improved. Patient tolerated blood transfusion and platelets well.
[2022-03-05 06:40] LABS: Chloride 109 mmol/L (98-107); Potassium 3.7 mmoL/L (3.5-5.1); Sodium 139 mmol/L (136-145)
[2022-03-05 06:43] LABS: Anion Gap 12.7 mEq/L (5-15); Basophils % 0.2 % (0.1-2.0); Blood Urea Nitrogen 36 mg/dl (7-17); Calcium 8.7 mg/dl (8.4-10.2); Carbon Dioxide 21 mmol/L (22.0-30.0); Chol/HDL Ratio 2.6 (1-3.5); Cholesterol 169 mg/dl (140-200); Creatinine Clearance Estimated 23 mL/min (50-200); Eosinophils # 0.1 K/mm3 (0.0-0.4); Eosinophils % 1.4 % (0.1-12.0); Estimated Glomerular Filt Rate 25 ml/min (>60); GFR (African American) 30 ML/MIN (>60); Glucose 145 mg/dl (74-100); HDL Cholesterol 66 mg/dl (40-60); Mean Platelet Volume 7.8 fl (7.4-10.4); Triglycerides 122 mg/dl (30-150); VLDL Cholesterol 24 mg/dL (0-40); White Blood Count 5.8 K/mm3 (4.8-10.8)
[2022-03-05 06:50] LABS: Hematocrit 31.2 % (37.0-47.0); Lymphocytes # 0.9 K/mm3 (0.7-4.5); Lymphocytes % 16.1 % (10-50); Mean Corpuscular HGB Conc 34.6 g/dL (31.8-35.4); Mean Corpuscular Hemoglobin 31.2 pg (27.0-31.2); Mean Corpuscular Volume 90.2 fl (81-99); Monocytes # 0.3 K/mm3 (0.1-1.0); Neutrophils # 4.5 K/mm3 (1.8-7.8); Neutrophils % 77.2 % (37.0-80.0); Platelet Count 129 K/mm3 (142-424); Red Blood Count 3.46 M/mm3 (4.20-5.40); Red Cell Distribution Width 15.3 % (11.5-17.5)
[2022-03-05 06:54] LABS: Direct LDL Cholesterol 53.19 mg/dL (100-129)
[2022-03-05 06:55] LABS: Potassium 3.8 mmoL/L (3.5-5.1)
[2022-03-05 07:36] LABS: Hemoglobin 10.8 g/dL (12.2-16.2)
[2022-03-05 08:04] LABS: Hematocrit 30.3 % (37.0-47.0); Hemoglobin 10.7 g/dL (12.2-16.2)
--- NOTE | 2022-03-05 08:12 | HMH.ACPN2 ---
<Abby Chery - Last Filed: 03/05/22 08:12> Internal Medicine - PN: Subj *Date: 03/05/22 *Time: 08:13 Interval history: Patient has received platelets and packed red blood cells. She has been seen by cardiology and is stable for surgery. Blood pressure was elevated and she received metoprolol and hydralazine resulting in improved blood pressure. Patient denies shortness of breath and chest pain. Her discomfort is her left hip. She is ready to go to surgery. She remains n.p.o. Laboratory data shows platelets increased to 129,000 early this a.m. hemoglobin is 10.7 hematocrit 30.3. Blood chemistry: sodium is 139 potassium is 3.8 with a chloride of 109, BUN is 36 and creatinine has improved to 2. Echo cardiogram revealed the following:Conclusion 1. Mildly enlarged left atrium, normal left ventricular size, mild concentric left ventricular hypertrophy, estimated ejection fraction 55% with no regional wall motion abnormality, grade 2 diastolic dysfunction seen with tissue Doppler evidence of raise left atrial pressure. 2. Thickened and calcified aortic valve without significant aortic stenosis or aortic insufficiency. 3. Mild mitral and tricuspid regurgitation, calculated right ventricular systolic pressure is 35 mmHg. 4. No significant pericardial effusion noted. 5. Inferior vena cava is poorly visualized. Exam Vital signs and Labs for Last 24 Hours: Temp Pulse Resp BP Pulse Ox 98.5 F 80 20 182/72 H 95 03/05/22 06:35 03/05/22 06:35 03/05/22 06:35 03/05/22 06:35 03/05/22 06:35 Laboratory Results - last 24 hr 03/04/22 11:19: POC Glucose 160 H 03/04/22 12:13: Blood Type A Positive, Antibody Screen Negative, Crossmatch (AHG) See Detail 03/04/22 12:13: Hemoglobin A1c 6.8 H 03/04/22 18:22: POC Glucose 139 H 03/04/22 20:27: WBC 5.3 D, RBC 3.09 L, Hgb 9.6 L, Hct 29.1 L, MCV 94.1, MCH 31.0, MCHC 32.9, RDW 15.6, Plt Count 86 L D, MPV 8.4, Neut % (Auto) 78.5, Lymph % (Auto) 14.4, [place] % (Auto) 5.3, Eos % (Auto) 1.7, Baso % (Auto) 0.1, Neut # (Auto) 4.2, Lymph # (Auto) 0.8, [place] # (Auto) 0.3, Eos # (Auto) 0.1, Baso # (Auto) 0.0 03/04/22 20:27: Blood Type Confirm A Positive 03/05/22 05:32: WBC 5.8, RBC 3.46 L, Hgb 10.8 L D, Hct 31.2 L, MCV 90.2, MCH 31.2, MCHC 34.6, RDW 15.3, Plt Count 129 L D, MPV 7.8, Neut % (Auto) 77.2, Lymph % (Auto) 16.1, [place] % (Auto) 5.0, Eos % (Auto) 1.4, Baso % (Auto) 0.2, Neut # (Auto) 4.5, Lymph # (Auto) 0.9, [place] # (Auto) 0.3, Eos # (Auto) 0.1, Baso # (Auto) 0.0 03/05/22 05:32: Sodium 139, Potassium 3.7, Chloride 109 H, Carbon Dioxide 21 L, Anion Gap 12.7, BUN 36 H, Creatinine 2.00 H, Estimated Creat Clear 23, Estimated GFR 25 L, Est GFR ( Amer) 30 L, Glucose 145 H, Calcium 8.7, Triglycerides 122, Cholesterol 169, LDL Cholesterol Direct 53.19 L, VLDL Cholesterol 24, HDL Cholesterol 66 H, Cholesterol/HDL Ratio 2.6 03/05/22 05:32: Potassium 3.8 03/05/22 05:39: POC Glucose 132 H 03/05/22 07:38: Hgb 10.7 L, Hct 30.3 L I & O for Last 24 hours: Intake & Output 03/02/22 03/03/22 03/04/22 03/05/22 11:59 11:59 11:59 11:59 Intake Total 417 / 417 1143 / 1143 Output Total 0 / 0 2800 / 2800 Balance 417 / 417 -1657 / -1657 Weight 113 lb 7.903 oz 113 lb - Constitutional no acute distress - *Routine Respiratory Exam Present: CTA bilaterally (Anteriorly and posteriorly) - *Routine Cardiovascular Exam Present: RRR, murmur - *Routine Abdominal Exam Present: soft, normoactive bowel sounds. Absent: tenderness - *Routine Extremities Exam Absent: edema, calf tenderness - *Routine Neurological Exam Present: alert, oriented X3 Assessment and Plan (1) Coronary artery disease Status: Acute Category: Medical Code(s): I25.10 - Atherosclerotic heart disease of [place] coronary artery without angina pectoris (2) History of CVA (cerebrovascular accident) Status: Acute Category: Medical Code(s): Z86.73 - Personal history of transient ischemic attack (TIA), and cere
--- NOTE | 2022-03-05 09:19 | HMH.ORTHPN ---
Subjective Date: 03/05/22 <WoodardJessica lauren - 03/05/22 09:20> Time: 08:55 <Jessica Woodard 03/05/22 09:20> Principal diagnosis: left femoral neck fracture <WoodardJessica 03/05/22 09:20> Interval history: Patient is a 66-year-old female admitted to the acute inpatient service after sustaining a left femoral neck fracture after a fall at home. She was provisionally scheduled for a left bipolar hemiarthroplasty yesterday evening but surgery was postponed after the patient's potassium and platelets were found to be low. She has received platelets, packed red blood cells, and potassium replacement with appropriate bumps in her morning laboratory results. This morning she is lying comfortably in bed. She continues to report pain in her left hip but states that it is well controlled with pain medication and rest. She states that she is ready to have her surgery. She denies chest pain, shortness of breath, palpitations, or distal tingling/numbness. She is currently n.p.o. for surgery. She denies any other symptoms or concerns at this time. <Jessica Woodard - 03/05/22 09:24> PN: Obj Ex Vital signs: Temp Pulse Resp BP Pulse Ox 97.4 F L 69 12 119/68 92 L 03/05/22 19:05 03/05/22 19:05 03/05/22 19:05 03/05/22 19:05 03/05/22 08:00 <JonesShaun Jackson - 03/05/22 19:24> Temp Pulse Resp BP Pulse Ox 98.6 F 82 14 185/79 H 92 L 03/05/22 08:00 03/05/22 08:00 03/05/22 08:00 03/05/22 08:00 03/05/22 08:00 <Jessica Woodard 03/05/22 09:20> - Constitutional no acute distress, cooperative <Jessica Woodard 03/05/22 10:30> - Routine HEENT Exam Head: Present: normocephalic, atraumatic <Jessica Woodard 03/05/22 10:30> Eye: Present: EOMI, PERRL <Jessica Woodard 03/05/22 10:30> ENT: Present: mucous membranes moist <WoodardJessica lauren 03/05/22 10:30> - Routine Neck Exam Present: supple, full ROM, trachea midline. Absent: JVD, lymphadenopathy <WoodardJessica 03/05/22 10:30> - Routine Respiratory Exam Absent: accessory muscle use, respiratory distress <VanceJessica 03/05/22 10:30> Comments: Symmetric chest movement, able to speak in complete sentences <VanceJessica 03/05/22 10:30> - Routine Cardiovascular Exam Present: RRR <WoodardJessica lauren 03/05/22 10:30> Comments: Normal peripheral pulses <VanceJessica 03/05/22 10:30> - Routine Abdominal Exam Present: soft. Absent: tenderness <VanceJessica 03/05/22 10:30> - Routine Extremities Exam Present: pulses intact, normal capillary refill <VanceJessica 03/05/22 10:30> Comments: Upon examination of the lower extremities: The left leg is shortened and externally rotated. The left hip and proximal femur are tender to palpation. Attempted movements of the left hip are painful. Thigh and calf are soft nontender; Homans' sign is negative. No clinical evidence of DVT noted. Posterior tibial pulse 1+; capillary refill is brisk. Sensation to light touch is grossly intact throughout. Patient is actively mobilizing the foot, ankle, and toes. <VanceJessica 03/05/22 10:31> - Routine Skin Exam Present: intact, warm, normal turgor. Absent: cyanosis, erythema, lesions, jaundice <VanceJessica 03/05/22 10:30> - Routine Neurological Exam Present: alert, oriented X3, CN II-XII intact, moving all extremities, normal tone, normal speech. Absent: sensory deficit, motor deficit, altered mental status <VanceJessica 03/05/22 10:30> - Urinary Catheter Management Del Valle Cath placed during this visit: no <Shaun Jones 03/05/22 19:24> no <Jessica Woodard 03/05/22 12:50> Progress Note: A&P (1) Coronary artery disease Status: Acute (2) History of CVA (cerebrovascular accident) Status: Acute (3) Diabetes mellitus Status: Acute (4) Liver failure Status: Acute (5) Fracture of femoral neck, left Status: Acute (6) Pancytope
--- NOTE | 2022-03-05 19:04 | P.PN_ITS ---
[facility] Anesthesia Checklist - Structural Data Admitted From: Inpatient Planned Operative Procedure/s: orif l hip Consent for Planned Operative Procedure(s) Verified: Yes - Airway Assessment C-Spine Mobility Assessed: Yes TMJ Mobility Assessed: Yes Dentition: Poor Dentition - Neurological Assessment Level of Consciousness: Awake, Alert, Appropriate - Anesthesia Plan Anesthesia Risk discussed: Yes Anesthesia Plan: Verified ASA Class: III Anesthesia Type: MAC w/Spinal [facility] History I have reviewed the patient's past medical history: Yes Medical History: Reports:: Coronary Artery Disease, Cerebrovascular Accident, Diabetes Mellitus Type 2, Heart Murmur, Hyperlipidemia, Hypertension Denies:: Cancer, Diabetes Mellitus Type 1, MRSA *Have you ever received a pneumonia vaccine?: Yes *Have you received a flu vaccine this season?: Yes Other Medical History: Reports: Anemia, Arthritis, Cataracts, Hypothyroidism, Liver Disease, Thyroid Disease Anesthesia experience/problems:: none Laterality Cases: Bilateral: Tonsillectomy, Other Other Surgeries: Yes: Cardiac Catheterization, Cholecystectomy, Colonoscopy, EGD, Tubal Ligation Amputation: No Fractures: Yes (Left ankle) - *Social History Last grade of school completed: 11th or 12th Smoking Status: Never smoker Alcohol Intake: never Substance Use Type: denies use *Occupational Status:: disabled Housing: house Household Members: family, children, caregiver *Travel in the last 8 weeks: None Family Hx:: Cancer, Coronary Artery Disease, Diabetes, Heart Attack, Hyperlipidemia, Hypertension, Stroke, Thyroid Disorder, Alcoholism
--- NOTE | 2022-03-05 19:05 | HMH.ANESI ---
[facility] Anesthesia Record Part I Intake, IV Amount: 2,800 Estimated blood loss (mL): 150 Urine output (mL): 400 Blood Pressure: 119/68 SaO2: 92 Pulse Rate: 69 Respiratory Rate: 12 Temperature: 97.4 F Patient is:: Awake, Stable Stable to PACU at:: 19:00
--- NOTE | 2022-03-05 19:09 | XR_ITS ---
PROCEDURE INFORMATION: Exam: XR Left Hip Exam date and time: 03/05/22 07:08 PM Age: 66 years old Clinical indication: Device placement; Other: Srinivas; Prior surgery; Surgery date: Post-operative (0-2 days); Additional info: Post op TECHNIQUE: Imaging protocol: XR Left hip. Views: 2 or 3 views hip with pelvis when performed. COMPARISON: CT BONY PELVIS 03/03/22 08:55 PM FINDINGS: Bones/joints: Left total hip arthroplasty. Soft tissues: Unremarkable. IMPRESSION: Left total hip arthroplasty.
--- NOTE | 2022-03-05 19:24 | HMH.OPNOTE ---
Date of procedure: 03/05/22 Pre-op Diagnosis:: Displaced femoral neck fracture, left hip Post-op Diagnosis:: Same Procedure performed:: Hemiarthroplasty, left hip Surgeon:: Shaun Jones MD Insulation Supervisor(s):: Jessica Woodard PA-C SHAREPOINT MANAGER:: Karl Lopez Anesthesia: spinal Estimated blood loss (mL): 150 Clinical Note:: Patient is a 66-year-old female who sustained a displaced intracapsular fracture neck of left femur following a mechanical fall. Patient has multiple and significant medical comorbidities and has limited mobility at baseline. A hemiarthroplasty is indicated to relieve pain and restore function. The operation is clinically indicated and is the standard of care for this type of fracture. Please refer to my consult note for full details. Operative findings:: Displaced sub capital femoral neck fracture of the left hip as noted on the preoperative hip x-rays. The articular cartilage of the acetabulum is well preserved without evidence of significant arthritis. The proximal femur bone quality is soft/osteoporotic. Operative note:: On the day of the procedure the the patient was met on the floor, and a physical examination was performed. The operating side and site were marked and initialed by me. I reviewed the diagnosis, natural history and management options in detail including both the nonsurgical and surgical. Given the nature of the fracture, I have recommended surgery in the form of a hemiarthroplasty of the left hip. I have discussed the procedure, risks and benefits, alternatives, potential complications and expected outcomes with patient. The complications discussed include but are not limited to infection, injury to nerves and blood vessels, DVT and PE, femur fracture, limb length inequality, dislocation, implant failure, loosening, acetabular wear, osteolysis, periprosthetic femur fracture, heterotopic ossification, abductor weakness and a limp, incomplete relief of pain, incomplete return of function or motion, likely need for further surgery in future including revision, anesthetic/medical complications including heart attack, stroke, transfusion reactions and even . We discussed how any of these events can be devastating. We have discussed nonsurgical alternatives as well. We also discussed the postoperative course including the rehab and physical therapy required. Patient understood the risks, agreed to proceed with surgery, signed the consent form and no guarantees or assurances were given or implied. The patient was brought to the operating room and a spinal anesthesia was administered by the rivet heater gas. The patient was then transferred onto the operating table and positioned in the right lateral decubitus position with the left hip facing upwards. All the bony prominences were well-padded. The left lower extremity was then prepped and draped in the usual sterile fashion. The entire operative team used isolation suits and room traffic was controlled. The surgical landmarks and incision was marked over the skin with a marking pen. Ioban sterile drape was used to cover the operative site and isolate the perineum completely from the operative field. Administration of prophylactic IV antibiotics (Ancef and vancomycin) was confirmed with the rivet heater gas. A preprocedure timeout was performed as per hospital protocol. A posterior approach was used to the hip joint. An electrocautery was used for hemostasis. The skin incision was made centering over the posterior border of the greater trochanter extending posteriorly in a curvilinear fashion across the buttock. The dissection was carried through subcutaneous tissue down to the fascia mario. The fascia mario and gluteus fascia were split and a Charnley retractor was placed. The trochanteric bursa was then removed with blunt dissection. The sciatic nerve was identified and kept out of the harm's way throughout the rest of the procedure. The hip was then internally rotated and the fat over the lay brother
--- NOTE | 2022-03-05 19:50 | SUR.PHASEI ---
1909-xray @ bs taking 3 views. Pt sleeping comfortable. VSS. 1919-zaida cloth calender called. Pt dimished lung sounds and coughing. Albuterol Duo Neb treatment ordered. Respiratory called. 1922-Respiratory @ bs giving breathing treatment. 1924-detailed report called to Basim SHANE. Reported that patient is to receive 2nd dose of txa @ 1999. Warm blankets applied to patient. 1929- pt transported via bed to 2nd floor. Left in care of Basim SHANE. Pt stable.
[2022-03-06] VITALS (13 sets, daily range): BP systolic 110–209; BP diastolic 56–96; PULSE 66–92; RESP 14–22; TEMP 36.6–37.6; O2SAT 92–95
[2022-03-06 03:36] LABS: Hematocrit 27.9 % (37.0-47.0); Hemoglobin 9.7 g/dL (12.2-16.2); Mean Corpuscular HGB Conc 34.8 g/dL (31.8-35.4); Mean Corpuscular Hemoglobin 31.6 pg (27.0-31.2); Mean Corpuscular Volume 90.9 fl (81-99); Platelet Count 109 K/mm3 (142-424); Red Blood Count 3.07 M/mm3 (4.20-5.40); Red Cell Distribution Width 15.2 % (11.5-17.5)
[2022-03-06 03:37] LABS: Basophils % 0.2 % (0.1-2.0); Eosinophils % 1.1 % (0.1-12.0); Lymphocytes % 17.2 % (10-50); Mean Platelet Volume 10.8 fl (7.4-10.4); Monocytes % 9.4 % (1.7-9.3); Neutrophils % 71.5 % (37.0-80.0)
[2022-03-06 03:38] LABS: Eosinophils # 0.1 K/mm3 (0.0-0.4); Lymphocytes # 1.1 K/mm3 (0.7-4.5); Monocytes # 0.6 K/mm3 (0.1-1.0); Neutrophils # 4.4 K/mm3 (1.8-7.8); White Blood Count 6.2 K/mm3 (4.8-10.8)
[2022-03-06 06:46] LABS: Chloride 108 mmol/L (98-107); Potassium 3.1 mmoL/L (3.5-5.1); Sodium 135 mmol/L (136-145)
[2022-03-06 06:49] LABS: Anion Gap 9.1 mEq/L (5-15); Blood Urea Nitrogen 29 mg/dl (7-17); Calcium 7.8 mg/dl (8.4-10.2); Carbon Dioxide 21 mmol/L (22.0-30.0); Creatinine Clearance Estimated 27 mL/min (50-200); Estimated Glomerular Filt Rate 30 ml/min (>60); GFR (African American) 37 ML/MIN (>60); Glucose 143 mg/dl (74-100)
[2022-03-06 08:04] LABS: POC Glucose,Bedside 145 (70-110)
--- NOTE | 2022-03-06 08:55 | HMH.ACPN2 ---
<Lore Bnoe - Last Filed: 03/06/22 08:55> Internal Medicine - PN: Subj *Date: 03/06/22 *Time: 08:55 Interval history: Patient had surgery yesterday. She states she is sore at the surgical site but otherwise feels a little bit better today. She was not able to sleep last night because she was uncomfortable and interrupted by people coming in checking vitals and drawing blood. She was able to eat some this morning. Exam Vital signs and Labs for Last 24 Hours: Temp Pulse Resp BP Pulse Ox 99.2 F 90 22 193/86 H 93 L 03/06/22 04:37 03/06/22 04:37 03/06/22 04:37 03/06/22 04:37 03/06/22 04:37 Laboratory Results - last 24 hr 03/05/22 12:17: POC Glucose 145 H 03/05/22 22:00: WBC 6.2, RBC 3.07 L, Hgb 9.7 L, Hct 27.9 L, MCV 90.9, MCH 31.6 H, MCHC 34.8, RDW 15.2, Plt Count 109 L, MPV 10.8 H, Neut % (Auto) 71.5, Lymph % (Auto) 17.2, [place] % (Auto) 9.4 H, Eos % (Auto) 1.1, Baso % (Auto) 0.2, Neut # (Auto) 4.4, Lymph # (Auto) 1.1, [place] # (Auto) 0.6, Eos # (Auto) 0.1, Baso # (Auto) 0.0 03/06/22 05:49: Sodium 135 L, Potassium 3.1 L, Chloride 108 H, Carbon Dioxide 21 L, Anion Gap 9.1, BUN 29 H, Creatinine 1.70 H, Estimated Creat Clear 27, Estimated GFR 30 L, Est GFR ( Amer) 37 L D, Glucose 143 H, Calcium 7.8 L I & O for Last 24 hours: Intake & Output 03/03/22 03/04/22 03/05/22 03/06/22 11:59 11:59 11:59 11:59 Intake Total 417 / 417 1143 / 1143 2800 / 2800 Output Total 0 / 0 3625 / 3625 Balance 417 / 417 -2482 / -2482 2800 / 2800 Weight 113 lb 7.903 oz 113 lb - Constitutional no acute distress - *Routine Respiratory Exam Present: CTA bilaterally - *Routine Cardiovascular Exam Present: RRR - *Routine Abdominal Exam Present: soft, normoactive bowel sounds. Absent: tenderness - *Routine Extremities Exam Absent: cyanosis, clubbing, edema Comments: Dressing in place on the left hip - *Routine Skin Exam Present: warm. Absent: rash - *Routine Neurological Exam Present: alert, oriented X3 Assessment and Plan (1) Coronary artery disease Status: Acute Category: Medical Code(s): I25.10 - Atherosclerotic heart disease of [place] coronary artery without angina pectoris (2) History of CVA (cerebrovascular accident) Status: Acute Category: Medical Code(s): Z86.73 - Personal history of transient ischemic attack (TIA), and cerebral infarction without residual deficits (3) Diabetes mellitus Status: Acute Category: Medical Code(s): E11.9 - Type 2 diabetes mellitus without complications (4) Liver failure Status: Acute Category: Medical Code(s): K72.90 - Hepatic failure, unspecified without coma (5) Fracture of femoral neck, left Status: Acute Qualifiers: Encounter type: initial encounter Fracture type: closed Qualified Code(s): S72.002A - Fracture of unspecified part of neck of left femur, initial encounter for closed fracture Category: Medical Code(s): S72.002A - Fracture of unspecified part of neck of left femur, initial encounter for closed fracture (6) Pancytopenia Status: Acute Category: Medical Code(s): D61.818 - Other pancytopenia (7) CKD (chronic kidney disease) Status: Acute Category: Medical Code(s): N18.9 - Chronic kidney disease, unspecified (8) Left hemiparesis Status: Acute Category: Medical Code(s): G81.94 - Hemiplegia, unspecified affecting left nondominant side (9) Limited mobility Status: Acute Category: Medical Code(s): Z74.09 - Other reduced mobility (10) Hypokalemia Status: Acute Category: Medical Code(s): E87.6 - Hypokalemia - Assessment and plan all Dx Assessment and Plan for all problems:: Patient has done well postop. Still awaiting CBC this morning. Potassium is low and will need to be replaced. Renal function is improving. Ortho to follow. <Tylor Covarrubias - Last Filed: 03/06/22 09:24> Internal Medicine - PN: Subj *Date: 03/06/22 *Time: 09:24 Exam Vital signs and Lab
--- NOTE | 2022-03-06 09:49 | HMH.ORTHPN ---
Subjective Date: 03/06/22 Time: 08:45 Principal diagnosis: left femoral neck fracture Interval history: Patient is a 66-year-old female admitted to the acute inpatient service following an uneventful left bipolar hemiarthroplasty yesterday 03/05/2022. This morning the patient is postop day #1. She is lying comfortably in bed this morning and her [id number] is present at the bedside. She states that she has some pain in her left hip as to be expected, but states that it is well controlled with rest and as needed pain medication. She reports that she has been eating and drinking well and denies any episodes of nausea or vomiting. She states that she was able to stand at the side of the bed with the assistance of physical therapy this morning. She denies any feelings of chest pain, shortness of breath, palpitations, fevers, chills, rigors, or distal tingling/numbness. She denies any other symptoms or concerns at this time. PN: Obj Ex Vital signs: Temp Pulse Resp BP Pulse Ox 98.5 F 87 20 187/89 H 94 L 03/06/22 08:00 03/06/22 08:00 03/06/22 08:00 03/06/22 08:00 03/06/22 08:00 - Constitutional no acute distress, cooperative - Routine HEENT Exam Head: Present: normocephalic, atraumatic Eye: Present: EOMI, PERRL ENT: Present: mucous membranes moist - Routine Neck Exam Present: supple, full ROM, trachea midline. Absent: JVD, lymphadenopathy - Routine Respiratory Exam Absent: accessory muscle use, respiratory distress Comments: Symmetric chest movement, able to speak in complete sentences - Routine Cardiovascular Exam Present: RRR Comments: Normal peripheral pulses - Routine Abdominal Exam Present: soft. Absent: tenderness - Routine Extremities Exam Comments: Upon examination of the lower extremities: The limb lengths are equal. Dressings present over the left hip are clean, dry, and intact. No evidence of drainage or bleeding noted. Attempted movements of the left hip are somewhat painful. Thigh and calf are soft nontender; Homans' sign is negative. No clinical evidence of DVT noted. Posterior tibial pulse 1+; capillary refill is brisk. Sensation to light touch is grossly intact throughout. Patient is actively mobilizing the ankle, foot, and toes. Diagnostic imaging: Postoperative check x-ray performed at [facility] on 03/05/2022 reviewed along with radiologist report. X-ray demonstrates a left bipolar hemiarthroplasty with orthopedic components in satisfactory alignment. No evidence of orthopedic complications noted. Radiologist report is as follows: FINDINGS: Bones/joints: Left total hip arthroplasty. Soft tissues: Unremarkable. IMPRESSION: Left total hip arthroplasty. - Routine Skin Exam Present: intact, warm, normal turgor. Absent: cyanosis, erythema, lesions, jaundice - Routine Neurological Exam Present: alert, oriented X3, CN II-XII intact, normal tone, normal speech. Absent: sensory deficit, motor deficit, altered mental status - Routine Psychiatric Exam Present: normal affect, cooperative - Urinary Catheter Management [place] Cath placed during this visit: no Urethral indwelling: Yes Progress Note: A&P (1) Coronary artery disease Status: Acute (2) History of CVA (cerebrovascular accident) Status: Acute (3) Diabetes mellitus Status: Acute (4) Liver failure Status: Acute (5) Fracture of femoral neck, left Status: Acute (6) Pancytopenia Status: Acute (7) CKD (chronic kidney disease) Status: Acute (8) Left hemiparesis Status: Acute (9) Limited mobility Status: Acute (10) Hypokalemia Status: Acute Assessment and Plan for All Diagnoses:: I have discussed the clinical findings and progress with the patient and her [id number]. Overall she reports that she is doing well this morning and denies any specific concerns or c
--- NOTE | 2022-03-06 10:00 | SW/DCPLANNER ---
Addendum entered by [facility] 03/07/22 09:42: I have notified Jenna moses/ [facility] that the plan for this patient is to discharge today. Jenna has requested a COVID swab and stated that she will ask Dr Ortiz to follow at [facility]. Addendum entered by [facility] 03/06/22 15:45: [facility]. Patient is fine with [facility] and plans to discharge there once medically stable for discharge. I will continue to follow patient and MD tomorrow morning. Addendum entered by [facility] 03/06/22 14:44: Jenna moses/ [facility] is able to accept this patient once medically stable for discharge. I am currently waiting to hear back from Corie moses/ [facility]. Addendum entered by [facility] 03/06/22 10:27: CORRECTION: patient has not been to [facility] in the past but does prefer this facility. Patient information has also been faxed to [facility] and VM has been left with [facility]. Original Note: I spoke with this patient regarding plans once medically stable for discharge. Patient stated that she has been to [facility] in the past and understands she may need placement at time of discharge. PT/OT has recommended placement for this patient. Patient information has been faxed to Corie moses/ [facility]. I will follow up with Corie and patient/family once information is reviewed.
--- NOTE | 2022-03-06 10:03 | HMH.PTEV ---
Physical Therapy Evaluation Rehab PT IP Evaluation Start: 03/05/22 19:03 Freq: ONCE Status: Active Protocol: Document 03/06/22 09:58 [facility] (Rec: 03/06/22 10:03 [facility] [id number]) Subjective/History History History This is the initial IP PT evaluation for Alicia Whalen. Pt is a 66 y/o female admitted to [facility] s/p mechanical fall at home where she suffered a L femoral neck fx. Pt has hx of falls with a recent fx L humerus. Pt has also suffered past CVA w/ hemiparesis on L side Subjective Subjective Pt reports no significant c/o pain and states she is willing to participate Rehab PT IP Eval Objective Appearance Patient Behavior Appropriate,Cooperative Patient Orientation Place,Name,Birthday,Year Difficulty following instructions none Speech Pattern Appropriate Ambulation Patient Able to Ambulate Yes Ambulation Observation IP General Gait Pattern Observation Antalgic Gait,Decrease Weight Bear (L) Ambulation Distance (feet) 2 Ambulation Assistive Device None Ambulation Ability Maximum x 1 (75% assist),Total /Dependent (100%) Balance Ability to Arise Unable Sitting Balance Steady, safe Standing Balance Unsteady Dynamic Sitting Balance Ability Fair Dynamic Standing Balance Ability Zero Transfers Bed Transfer Ability Contact Guard/Hand Hold, Minimal x 1 (25% assist) Chair Transfer Ability Minimal x 1 (25% assist), Moderate x 1 (50% assist) Sit to Stand Bed Transfer Ability Maximum x 1 (75% assist) Sit to Stand Chair Transfer Ability Maximum x 1 (75% assist) Rehab PT IP prob,goals,plan Problems Date of Evaluation: 03/06/22 PT IP Problems Bed Mobility,Transfers,Gait, Balance,Self care,Safety Rehab Potential Rehab Potential Fair Equipment Needs Assistive Devices Rolling / Wheeled Walker, Platform Walker Plan PT Intervention Plan Bed Mobility,Transfers,Gait, Balance,Self care,Safety, Therapeutic Exercise PT Plan Frequency BID Duration LOS Discharge Goals Bed Transfer Ability Contact Guard/Hand Hold, Minimal x 1 (25% ass
--- NOTE | 2022-03-06 10:37 | HMH.OTEV ---
OT Inpatient Evaluation Rehab OT IP Evaluation Start: 03/05/22 19:03 Freq: ONCE Status: Complete Protocol: Document 03/06/22 10:11 [facility] (Rec: 03/06/22 10:37 [facility] [id number]) Rehab OT IP Assessment Subjective History Pt oriented x 2 on arrival. Pt's daughter in law present. Pt was admitted via ED on due to a fall with left hip fx. Pt required a L hemiarthroplasty to left hip on 03/05/22. Pt lived with son and daughter in law prior to being in the hospital. Pt had a past CVA affecting her left side requiring daily assistance. She required assistance with all ADLs and was dependent upon family for completion of all IADLS. Pt used a wheelchair to get around. Daugther in law reports she was able to transfer herself with a stand pivot transfer at times, but did require assistance at times as well. Subjective I am in pain. Pt resting in bed on arrival. Pt agreeable to evaluation. Pt required mod assist x 2 to complete bed mobility and go from supine to sitting at eob. Pt demonstrated good static sitting balance at eob with sba. Pt was able to complete sit to stand from bed with mod assist x 1. Pt stood for ~30 seconds before having to sit back down with mod assistance in standing. Pt then required max assist x 2 to complete bed mobility and go from sitting to supine. Pt was left with call hamlin and all other needs in reach. Daughter in law present and supportive. Objective Patient Orientation Person,Birthday Upper Extremity Gross ROM Mod Limitation 50% Shoulder ROM Limitations Muscle Weakness Elbow ROM Limitations Muscle
[2022-03-06 11:49] LABS: POC Glucose,Bedside 227 (70-110)
[2022-03-06 11:51] LABS: Hematocrit 28.4 % (37.0-47.0); Mean Corpuscular HGB Conc 35.2 g/dL (31.8-35.4); Mean Corpuscular Hemoglobin 31.5 pg (27.0-31.2); Mean Corpuscular Volume 89.6 fl (81-99); Neutrophils % 78.4 % (37.0-80.0); Platelet Count 89 K/mm3 (142-424); Red Blood Count 3.17 M/mm3 (4.20-5.40); Red Cell Distribution Width 14.8 % (11.5-17.5)
[2022-03-06 11:52] LABS: Basophils % 0.2 % (0.1-2.0); Eosinophils # 0.1 K/mm3 (0.0-0.4); Eosinophils % 1.1 % (0.1-12.0); Lymphocytes # 0.6 K/mm3 (0.7-4.5); Monocytes # 0.5 K/mm3 (0.1-1.0); Monocytes % 9.1 % (1.7-9.3); Neutrophils # 4.2 K/mm3 (1.8-7.8); White Blood Count 5.4 K/mm3 (4.8-10.8)
--- NOTE | 2022-03-06 13:18 | HMH.ANESII ---
[facility] Anesthesia Record Part II Discharge Time: 19:30 Destination: Intensive Care Unit PACU nurse assessment reviewed?: Yes Patient Condition:: Good Anesthesia Complications:: None Swallowing reflex intact?: Yes Cyanosis?: No Blood Pressure: 110/58 Pulse Rate: 71 Temperature: 98.1 F Mental Status: Alert & Oriented Pain level:: 0 Nausea and/or vomitting:: None Intake, IV Amount: 0
--- NOTE | 2022-03-06 13:40 | DIET.NUTRFU ---
spoke to nursing after lunch, pt was sleeping. Nursing verified she tolerated regular diet breakfast and lunch with good meal intake. Able to chew pork chop no issues.
[2022-03-06 16:26] LABS: POC Glucose,Bedside 215 (70-110)
--- NOTE | 2022-03-06 21:25 | PC.NURSE ---
Patient voided 100ml post joseph cath removal.
[2022-03-07 04:00] VITALS: BP 156/55; PULSE 70; RESP 16; TEMP 36.9; O2SAT 94
--- NOTE | 2022-03-07 04:46 | PC.NURSE ---
Patient complains of let hip pain, medicated per mar throughout shift. Patient voided serval times this shift. Patient able to pivot and turn to bedside with assist x2. During 3 o'clock rounds patient found without abduction pillow on. Educated patient purpose and importance of use patient states, It hurts I don't want it right now. despite education provided. Will continue to educate and reapproach use of abduction pillow.
[2022-03-07 06:37] LABS: Chloride 104 mmol/L (98-107)
[2022-03-07 06:38] LABS: Potassium 3.5 mmoL/L (3.5-5.1); Sodium 132 mmol/L (136-145)
[2022-03-07 06:40] LABS: Basophils % 0.6 % (0.1-2.0); Eosinophils # 0.1 K/mm3 (0.0-0.4); Hematocrit 27.8 % (37.0-47.0); Hemoglobin 9.7 g/dL (12.2-16.2); Lymphocytes # 0.8 K/mm3 (0.7-4.5); Mean Corpuscular HGB Conc 34.9 g/dL (31.8-35.4); Mean Corpuscular Hemoglobin 32.3 pg (27.0-31.2); Mean Corpuscular Volume 92.5 fl (81-99); Mean Platelet Volume 8.6 fl (7.4-10.4); Monocytes # 0.4 K/mm3 (0.1-1.0); Monocytes % 8.3 % (1.7-9.3); Neutrophils # 3.7 K/mm3 (1.8-7.8); Neutrophils % 73.1 % (37.0-80.0); Platelet Count 81 K/mm3 (142-424); Red Blood Count 3.01 M/mm3 (4.20-5.40); Red Cell Distribution Width 15.8 % (11.5-17.5)
[2022-03-07 06:41] LABS: Anion Gap 9.5 mEq/L (5-15); Blood Urea Nitrogen 33 mg/dl (7-17); Calcium 7.8 mg/dl (8.4-10.2); Carbon Dioxide 22 mmol/L (22.0-30.0); Creatinine Clearance Estimated 24 mL/min (50-200); Estimated Glomerular Filt Rate 27 ml/min (>60); GFR (African American) 32 ML/MIN (>60); Glucose 161 mg/dl (74-100)
[2022-03-07 07:49] VITALS: BP 160/57; PULSE 71; RESP 18; TEMP 36.7; O2SAT 95
[2022-03-07 08:00] VITALS: O2SAT 95
--- NOTE | 2022-03-07 08:28 | HMH.ACPN2 ---
<Lore Bone - Last Filed: 03/07/22 08:28> Internal Medicine - PN: Subj *Date: 03/07/22 *Time: 08:28 Interval history: The patient is feeling better today. She was able to get up and work with rehab yesterday. She states she sat in a chair for quite a while. She only has pain in the hip with movement. She states she slept well last night and did eat breakfast this morning. Exam Vital signs and Labs for Last 24 Hours: Temp Pulse Resp BP Pulse Ox 98.1 F 71 18 160/57 H 95 03/07/22 07:49 03/07/22 07:49 03/07/22 07:49 03/07/22 07:49 03/07/22 07:49 Laboratory Results - last 24 hr 03/06/22 05:49: WBC 5.4, RBC 3.17 L, Hgb 10.0 L, Hct 28.4 L, MCV 89.6, MCH 31.5 H, MCHC 35.2, RDW 14.8, Plt Count 89 L, MPV 11.0 H, Neut % (Auto) 78.4, Lymph % (Auto) 11.0, [place] % (Auto) 9.1, Eos % (Auto) 1.1, Baso % (Auto) 0.2, Neut # (Auto) 4.2, Lymph # (Auto) 0.6 L, [place] # (Auto) 0.5, Eos # (Auto) 0.1, Baso # (Auto) 0.0 03/06/22 11:41: POC Glucose 227 H 03/06/22 16:18: POC Glucose 215 H 03/07/22 05:39: WBC 5.0, RBC 3.01 L, Hgb 9.7 L, Hct 27.8 L, MCV 92.5, MCH 32.3 H, MCHC 34.9, RDW 15.8, Plt Count 81 L, MPV 8.6, Neut % (Auto) 73.1, Lymph % (Auto) 16.0, [place] % (Auto) 8.3, Eos % (Auto) 2.0, Baso % (Auto) 0.6, Neut # (Auto) 3.7, Lymph # (Auto) 0.8, [place] # (Auto) 0.4, Eos # (Auto) 0.1, Baso # (Auto) 0.0 03/07/22 05:39: Sodium 132 L, Potassium 3.5, Chloride 104, Carbon Dioxide 22, Anion Gap 9.5, BUN 33 H, Creatinine 1.90 H, Estimated Creat Clear 24, Estimated GFR 27 L, Est GFR ( Amer) 32 L, Glucose 161 H, Calcium 7.8 L I & O for Last 24 hours: Intake & Output 03/04/22 03/05/22 03/06/22 03/07/22 11:59 11:59 11:59 11:59 Intake Total 417 / 417 1143 / 1143 3280 / 3280 720 / 720 Output Total 0 / 0 3625 / 3625 1000 / 1000 600 / 600 Balance 417 / 417 -2482 / -2482 2280 / 2280 120 / 120 Weight 113 lb 7.903 oz 113 lb - Constitutional no acute distress - *Routine Respiratory Exam Present: CTA bilaterally - *Routine Cardiovascular Exam Present: RRR, murmur - *Routine Abdominal Exam Present: soft, normoactive bowel sounds. Absent: tenderness - *Routine Extremities Exam Absent: cyanosis, clubbing, edema Comments: Dressing in place on the left hip - *Routine Skin Exam Present: warm. Absent: rash - *Routine Neurological Exam Present: alert, oriented X3 Assessment and Plan (1) Coronary artery disease Status: Acute Category: Medical Code(s): I25.10 - Atherosclerotic heart disease of [place] coronary artery without angina pectoris (2) History of CVA (cerebrovascular accident) Status: Acute Category: Medical Code(s): Z86.73 - Personal history of transient ischemic attack (TIA), and cerebral infarction without residual deficits (3) Diabetes mellitus Status: Acute Category: Medical Code(s): E11.9 - Type 2 diabetes mellitus without complications (4) Liver failure Status: Acute Category: Medical Code(s): K72.90 - Hepatic failure, unspecified without coma (5) Fracture of femoral neck, left Status: Acute Qualifiers: Encounter type: initial encounter Fracture type: closed Qualified Code(s): S72.002A - Fracture of unspecified part of neck of left femur, initial encounter for closed fracture Category: Medical Code(s): S72.002A - Fracture of unspecified part of neck of left femur, initial encounter for closed fracture (6) Pancytopenia Status: Acute Category: Medical Code(s): D61.818 - Other pancytopenia (7) CKD (chronic kidney disease) Status: Acute Category: Medical Code(s): N18.9 - Chronic kidney disease, unspecified (8) Left hemiparesis Status: Acute Category: Medical Code(s): G81.94 - Hemiplegia, unspecified affecting left nondominant side (9) Limited mobility Status: Acute Category: Medical Code(s): Z74.09 - Other reduced mobility (10) Hypokalemia Status: Acute Category: Medical Code(s): E87.6 - Hypokalemia - Assessment and stacy
--- NOTE | 2022-03-07 09:58 | HMH.ORTHPN ---
Subjective Date: 03/07/22 <WoodardJessica lauren - 03/07/22 10:01> Time: 09:30 <Jessica Woodard - 03/07/22 10:01> Principal diagnosis: s/p bipolar hemiarthroplasty, left hip <Jessica Woodard - 03/07/22 10:08> Interval history: Patient is a 66-year-old female admitted to the acute inpatient service following an uneventful left bipolar hemiarthroplasty on 03/05/2022. This morning the patient is postop day #2. She is lying comfortably in bed this morning. She states that she has some pain in her left hip, but states that it is well controlled with rest and as needed pain medication. She reports that she has been eating and drinking well and denies any episodes of nausea or vomiting. She states that she was able to stand at the side of the bed with the assistance of physical therapy but has not ambulated, at baseline she primarily mobilizes using a wheelchair. She denies any feelings of chest pain, shortness of breath, palpitations, fevers, chills, rigors, or distal tingling/numbness. She denies any other symptoms or concerns at this time. <Jessica Woodard - 03/07/22 10:08> PN: Obj Ex Vital signs: Temp Pulse Resp BP Pulse Ox 98.6 F 72 22 139/58 L 96 03/07/22 16:00 03/07/22 16:00 03/07/22 16:00 03/07/22 16:00 03/07/22 16:00 <Shaun Jones - 03/07/22 20:29> Temp Pulse Resp BP Pulse Ox 98.1 F 71 18 160/57 H 95 03/07/22 07:49 03/07/22 07:49 03/07/22 07:49 03/07/22 07:49 03/07/22 07:49 <Jessica Woodard - 03/07/22 10:01> - Constitutional no acute distress, cooperative <Jessica Woodard 03/07/22 10:08> - Routine HEENT Exam Head: Present: normocephalic, atraumatic <Jessica Woodard 03/07/22 10:08> Eye: Present: EOMI, PERRL <Jessica Woodard 03/07/22 10:08> ENT: Present: mucous membranes moist <Jessica Woodard 03/07/22 10:08> - Routine Neck Exam Present: supple, full ROM, trachea midline. Absent: JVD, lymphadenopathy <Jessica Woodard 03/07/22 10:08> - Routine Respiratory Exam Absent: accessory muscle use, respiratory distress <Jessica Woodard 03/07/22 10:08> Comments: Symmetric chest movement, able to speak in complete sentences <Jessica Woodard 03/07/22 10:08> - Routine Cardiovascular Exam Present: RRR <Jessica Woodard 03/07/22 10:08> Comments: Normal peripheral pulses <Jessica Woodard 03/07/22 10:08> - Routine Abdominal Exam Present: soft. Absent: tenderness <Jessica Woodard 03/07/22 10:08> - Routine Extremities Exam Present: pulses intact. Absent: calf tenderness <Jessica Woodard 03/07/22 10:08> Comments: Upon examination of the lower extremities: The limb lengths are equal. Dressings present over the left hip are clean, dry, and intact. No evidence of drainage or bleeding noted. The surgical incision is healing well. No erythema, induration, purulent drainage, bleeding, or other signs of infection noted. There is a Dermabond Prineo skin closure dressing in place. The left hip and proximal femur are tender to palpation. Attempted movements of the left hip are somewhat painful. Thigh and calf are soft nontender; Homans' sign is negative. No clinical evidence of DVT noted. Posterior tibial pulse 1+; capillary refill is brisk. Sensation to light touch is grossly intact throughout. Patient is actively mobilizing the foot, ankle, and toes. <Jessica Woodard 03/07/22 10:08> - Routine Skin Exam Present: intact, warm, normal turgor. Absent: erythema, lesions, jaundice <Jessica Woodard 03/07/22 10:08> - Routine Neurological Exam Present: alert, oriented X3, CN II-XII intact, moving all extremities, normal tone, normal speech. Absent: sensory deficit, motor deficit, altered mental status <Jessica Woodard - 03/07/22 10:08> - Routine Psychiatric Exam Present: normal affect, cooperative <Jessica Woodard - 03/07/22 10:08> - Urinary Catheter Management Del Valle Cath placed during this visit: no <Shaun Jones
[2022-03-07 10:11] LABS: Coronavirus 19, PCR Not Detected (NotDetected); Influenza A, PCR Not Detected (NotDetected)
[2022-03-07 10:12] LABS: Influenza B, PCR Not Detected (NotDetected)
--- NOTE | 2022-03-07 11:27 | HMH.DCSUM ---
General - General Admission date:: 03/03/22 Discharge date: 03/07/22 HPI HPI: Ms. Whalen is a 66-year-old female with a history of coronary artery disease, diabetes mellitus, previous stroke, liver failure, and chronic kidney disease previously on dialysis. She is followed by several specialist for each of her diseases. She presented to [facility] emergency room for evaluations per EMS after a fall at home. She states she was walking to the bathroom, lost her balance and fell. She describes usually being unsteady on her feet and uses a walker with help. She did try to ambulate without any assistance. She lives with family who immediately found her and called the ambulance when they were unable to assist her to and upright position. She had left hip plain. She denies having any chest pain or shortness of breath before or after the fall. With evaluation in the emergency room She had multiple x-rays/CTs completed to include chest x-ray which was negative for any acute process, CT of the cervical spine which showed chronic degenerative changes without an acute cervical spine injury and a right sphenoid sinusitis; Femur x-ray which indicated an acute fracture involving the left femoral neck: Head CT which indicated Moderately advanced chronic microvascular disease and generalized atrophy without any acute intracranial abnormality.;Lumbar spine CT with no acute findings;Thoracic spine CT with no acute findings ; Pelvis CT with note of the acute angulated fracture of the left femoral head. Further testing revealed a CBC with a white blood cell count of 3800 and hemoglobin of 9.5 and hematocrit of 28.5.Platelet count was noted to be 72. Blood chemistries showed low carbon dioxide at 21 BUN was 53 and creatinine was 2.9. GFR was 16. Blood sugar 386. Liver function studies with an elevated AST of 51 and alkaline phosphatase of 149.Morning was normal at 24. She received Zofran for nausea. She was admitted for further evaluation and treatment with an orthopedic consult. This a.m. patient has some left hip discomfort. She is n.p.o. with her orthopedic consult. She will also have a cardiology consult. Hospital Course Hospital Course: The patient was admitted and started on pain control. Orthopedics was consulted as was cardiology. She was seen by Dr. Jones who wanted to perform a bipolar hemiarthroplasty. She was seen by cardiology as well for surgical clearance. They ordered an echo and recommended she continue aspirin 81 mg daily when it was safe to do so from an orthopedic standpoint. Her echo showed an EF of 55% with grade 2 diastolic dysfunction. She did have a right ventricular systolic pressure of 35 mmHg. She also had a carotid duplex due to a right carotid bruit and it showed less than 50% stenosis bilaterally. Cardiology felt she was an acceptable risk to undergo surgery. Her H&H was low and her platelets were decreased. She had to be given platelets and packed red blood cells. Her blood pressure was elevated and she received metoprolol and hydralazine which improved her blood pressure. It was felt she was stable for surgery. She was taken to the OR on 03/05/2022 and had a hemiarthroplasty of the left hip. She tolerated the procedure well. She was sore at the incision site after surgery, but her pain had improved. Her potassium was low and had to be replaced. Her renal function was improving. PT and OT were ordered and Ortho felt she could ambulate weightbearing as tolerated on the left lower extremity. They advised her to continue use of her abduction wedge when laying down and sleeping for 6 weeks postoperatively. They felt she would need DVT prophylaxis. She was seen by physical therapy and they felt she would benefit from short-term rehab. Care management found her a bed at [facility] and by 03/07/2022 she was feeling better and had been able to get up to a chair with therapy. She only had pain in her hip with
--- NOTE | 2022-03-07 13:34 | PC.NURSE ---
called report to miguel angel at [facility]
--- NOTE | 2022-03-07 13:41 | PC.NURSE ---
called [facility] ems. Ems did not answer, will call again
[2022-03-07 16:00] VITALS: BP 139/58; PULSE 72; RESP 22; TEMP 37; O2SAT 96
[2022-03-07 20:00] VITALS: BP 110/51; PULSE 68; RESP 18; TEMP 36.8; O2SAT 95
--- NOTE | 2022-03-07 22:56 | PC.NURSE ---
Patient dc to [facility] has arrived. Patient stable and alert at time of dc. Both Iv's removed. Patient states she understands discharge instruction.
--- NOTE | 2022-03-10 15:46 | CARE MANAGER ---
Spoke with nurse at [facility] regarding this patient, and she states that patient has been up to the dining room and has had no issues. I did reiterate that patient has an outpatient appointment with Dr. Jones and gave her the date and time.
== END 2022-03-07 22:25 | DRG 522 ==
LOC: ER 21:57 → ICU 03-04 03:23 → 2ND 03-06 17:52
PROVIDERS: Family Medicine; Nurse Practitioner Family; Orthopaedic Surgery; Physician Assistant Surgical; Student in an Organized Health Care Education/Training Program; Admitting Provider Family Medicine; Emergency Provider Emergency Medicine; Visit Provider Family Medicine
PROC: 0SRS0JZ Replacement of Left Hip Joint, Femoral Surface with Synthetic Substitute, Open Approach (ICD-10-PCS; principal; 2022-03-05 15:30)
DX: S72.002A Fracture of unspecified part of neck of left femur, initial encounter for closed fracture (principal); G81.94 Hemiplegia, unspecified affecting left nondominant side; W19.XXXA Unspecified fall, initial encounter; Z86.73 Personal history of transient ischemic attack (TIA), and cerebral infarction without residual deficits; K74.60 Unspecified cirrhosis of liver; E11.42 Type 2 diabetes mellitus with diabetic polyneuropathy; I25.10 Atherosclerotic heart disease of native coronary artery without angina pectoris; E03.9 Hypothyroidism, unspecified; M19.90 Unspecified osteoarthritis, unspecified site; E11.22 Type 2 diabetes mellitus with diabetic chronic kidney disease; N18.9 Chronic kidney disease, unspecified
CPT/HCPCS: 27236; 36415; 51702; 70450; 71045; 72125; 72128; 72131; 72192; 73502; 73521; 73552; 80048; 80053; 80061; 80365; 81001; 82140; 82962; 83036; 83605; 83735; 84100; 84132; 84484; 85014; 85018; 85025; 85610; 85730; 86850; 93005; 93306; 93880; 96375; 97162; 97166; 97530; 99285; C1776; C9803; J2405; J3370; P9016; P9034; U0003; U0005

== ENCOUNTER → 2022-03-20 08:42 | Outpatient (CLI) | payer MEDICAID, SELFPAY ==
--- NOTE | 2022-03-20 08:46 | XR_ITS ---
FINAL REPORT CLINICAL HISTORY: hip pain COMPARISON: March 05, [address] scan dated March 03, 2022 FINDINGS: LEFT HIP: Two views of the left hip were obtained. There are postoperative changes from left hip arthroplasty. There is a questionable nondisplaced fracture of the left superior pubic ramus. There are soft tissue calcifications. IMPRESSION: Questionable nondisplaced fracture of the left superior pubic ramus. Follow-up radiographs may be helpful. Postoperative changes in the left hip. Reviewed, Interpreted and Dictated by Adrián Palacio III, MD Transcribed by Renetta Spears Authenticated by Adrián Palacio III, MD on 03/20/2022 10:20:22 AM [facility]
== END ==
PROVIDERS: PCP Family Medicine; Visit Provider Orthopaedic Surgery
DX: S72.002A Fracture of unspecified part of neck of left femur, initial encounter for closed fracture (principal)
CPT/HCPCS: 73502

== ENCOUNTER 2022-03-26 07:44 | Outpatient (CLI) | payer MEDICAID, SELFPAY ==
[2022-03-26] VITALS (11 sets, daily range): BP systolic 120–152; BP diastolic 40–73; PULSE 54–59; RESP 16–18; TEMP 36.2–36.4; O2SAT 100; BMI 27.1
[2022-03-26 10:15] LABS: Hematocrit 26.1 % (37.0-47.0); Hemoglobin 8.7 g/dL (12.2-16.2)
--- NOTE | 2022-03-26 10:15 | PC.NURSE ---
1015-notified Eliza Curran APRN with hgb 8.7, pt to only receive 1 unit prbc today.
[2022-03-26 12:52] LABS: Hematocrit 27.1 % (37.0-47.0); Hemoglobin 8.7 g/dL (12.2-16.2)
--- NOTE | 2022-03-26 13:07 | PC.NURSE ---
1300-notified Eliza Curran APRN with post h/h ok with one unit. pt ok to be d/c back to [facility].
== END 2022-03-26 13:40 | disposition home or self-care (01) ==
LOC: INF 07:47
PROVIDERS: PCP Internal Medicine Adolescent Medicine; Visit Provider Nurse Practitioner Family
DX: D64.9 Anemia, unspecified (principal)
CPT/HCPCS: 36430; 85014; 85018; 86850; P9016

== ENCOUNTER → 2022-04-24 10:29 | Outpatient (CLI) | payer MEDICAID, SELFPAY ==
--- NOTE | 2022-04-24 10:32 | XR_ITS ---
FINAL REPORT CLINICAL HISTORY: s/p hip surgery on 03/05/2022 f/u COMPARISON: March 20, 2022 FINDINGS: LEFT HIP Two views including an AP pelvis demonstrate postoperative changes from left hip arthroplasty. There is an oval calcification in the left pelvis of uncertain etiology. There are mild vascular calcifications. IMPRESSION: Postoperative changes as above. Oval calcification in the left pelvis of uncertain etiology. Reviewed, Interpreted and Dictated by Adrián Palacio III, MD Transcribed by Yamile Finley Authenticated and [facility]
== END ==
PROVIDERS: PCP Family Medicine; Visit Provider Orthopaedic Surgery
DX: S72.002A Fracture of unspecified part of neck of left femur, initial encounter for closed fracture (principal)
CPT/HCPCS: 73502

== ENCOUNTER → 2022-05-01 09:25 | Outpatient (CLI) | payer MEDICAID, SELFPAY ==
--- NOTE | 2022-05-01 09:26 | XR_ITS ---
FINAL REPORT TECHNIQUE: Bone densitometry calculations of the lumbar spine, left forearm and right hip were obtained. CLINICAL HISTORY: .FX. LT HIP FINDINGS: DEXA BONE DENSITY AXIAL SKELETON Using L1-4, the bone mineral density of the spine is 0.672 g/cm2, corresponding to T-score of -3.4. Using the left forearm, the bone mineral density of the distal 1/3 is 0.311 g/cm2, corresponding to a T-score of -6.4. Using the right hip, the bone mineral density of the femoral neck is 0.465 g/cm2, corresponding to a T-score of -3.5. NOTE: T-score: Standard deviation compared with peak bone mass of young adult mean. *Following the recommendations of the International Society of Bone Densitometry, classification of hip BMD is based on the lower of two T-scores; total hip or femoral neck. IMPRESSION: Osteoporosis: Lowest T-score is at or below -2.5. This patient's T-score meets the World Health Organization criteria for osteoporosis. Reviewed, Interpreted and Dictated by Adrián Palacio III, MD Transcribed by Yamile Finley Authenticated and . [facility]
== END ==
PROVIDERS: PCP Family Medicine; Visit Provider Orthopaedic Surgery
DX: S72.002A Fracture of unspecified part of neck of left femur, initial encounter for closed fracture (principal); Z78.0 Asymptomatic menopausal state
CPT/HCPCS: 77080

== ENCOUNTER → 2022-06-04 10:12 | Outpatient (CLI) | payer MEDICAID, SELFPAY ==
--- NOTE | 2022-06-04 10:19 | XR_ITS ---
PROCEDURE INFORMATION: Exam: XR Left Hip Exam date and time: 06/04/2022 10:43 AM Age: 66 years old Clinical indication: Hip pain; Left hip; Prior surgery; Surgery date: 6+ months; Additional info: S/P lt hip TECHNIQUE: Imaging protocol: Radiologic exam of the Left hip. Views: 2 or 3 views hip with pelvis when performed. COMPARISON: CR XR HIP LT 2-3V W/PELVIS 04/24/2022 10:36 AM FINDINGS: Bones/joints: Degenerative spondylosis and facet arthropathy within the lower lumbar spine. Osteophytosis and eburnation of the sacroiliac and acetabular articulating surfaces. Diffuse bone demineralization. Left hip replacement prosthesis appears to be appropriately configured. Soft tissues: Unremarkable. Vasculature: Calcifications of the regional arteries. Other findings: Injection granuloma overlies the left gluteal soft tissues. IMPRESSION: 1. Degenerative disc disease and facet arthropathy within the lower lumbar spine. 2. 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 3. Osteopenia. 4. Injection granuloma overlies the left gluteal soft tissues. 5. Left hip replacement prosthesis appears to be appropriately configured. 6. Atherosclerotic vascular disease.
== END ==
PROVIDERS: PCP Family Medicine; Visit Provider Orthopaedic Surgery
DX: S72.002A Fracture of unspecified part of neck of left femur, initial encounter for closed fracture (principal)
CPT/HCPCS: 73502

== ENCOUNTER 2023-03-14 10:10 | Inpatient (IN) | payer MEDICAID, MEDICARE, SELFPAY ==
[2023-03-14] VITALS (27 sets, daily range): BP systolic 114–160; BP diastolic 62–81; PULSE 87–137; RESP 7–36; TEMP 34.5–37.6; O2SAT 76–100; BMI 14.1
--- NOTE | 2023-03-14 10:05 | XR_ITS ---
PROCEDURE INFORMATION: Exam: XR Chest Exam date and time: 03/14/2023 10:58 AM Age: 67 years old Clinical indication: Shortness of breath; Additional info: Status epilepticus, resp failure TECHNIQUE: Imaging protocol: Radiologic exam of the chest. Views: 1 view. COMPARISON: CR XR CHEST AP 03/03/2022 7:33 PM FINDINGS: Lungs: No evidence of acute pulmonary process. Pleural spaces: Unremarkable. No pleural effusion. No pneumothorax. Heart/Mediastinum: Unremarkable. No cardiomegaly. Bones/joints: Chronic deformity of the left proximal humerus with apparent absence of the left humeral head. Intraperitoneal space: There are surgical clips in the right upper quadrant. IMPRESSION: No evidence of acute pulmonary process. Remainder of findings as described above.
--- NOTE | 2023-03-14 10:05 | CT_ITS ---
PROCEDURE INFORMATION: Exam: CT Head Without Contrast Exam date and time: 03/14/2023 11:04 AM Age: 67 years old Clinical indication: Other: Seizures; Additional info: Status epilepticus TECHNIQUE: Imaging protocol: Computed tomography of the head without contrast. Radiation optimization: All CT scans at this facility use at least one of these dose optimization techniques: automated exposure control; mA and/or kV adjustment per patient size (includes targeted exams where dose is matched to clinical indication); or iterative reconstruction. REPORTING DATA: Count of CT and Cardiac NM exams in prior 12 months: This patient has received 0 known CTs and 0 known cardiac nuclear medicine studies in the 12 months prior to the current study. COMPARISON: CT HEAD/BRAIN WO CON 03/03/2022 8:46 PM FINDINGS: Brain: Prominent sulci. Patchy hypodensity of the cerebral white matter which are nonspecific but likely secondary to microangiopathic changes. Cerebral ventricles: The ventricles are mildly prominent secondary to diffuse volume loss/atrophy. Paranasal sinuses: Visualized sinuses are unremarkable. No fluid levels. Mastoid air cells: Visualized mastoid air cells are well aerated. Bones/joints: Unremarkable. No acute fracture. Soft tissues: Unremarkable. IMPRESSION: Mild age-related changes but no evidence of acute intracranial pathology.
--- NOTE | 2023-03-14 10:16 | PC.NURSE ---
09:59 Ativan 2mg IV administered with resolution of seizure like activity.
[2023-03-14 10:18] LABS: Basophils % 0.1 % (0.1-2.0); Eosinophils # 0.1 K/mm3 (0.0-0.4); Eosinophils % 0.4 % (0.1-12.0); Hematocrit 25.7 % (37.0-47.0); Hemoglobin 8.6 g/dL (12.2-16.2); Lymphocytes # 0.9 K/mm3 (0.7-4.5); Lymphocytes % 7.9 % (10-50); Mean Corpuscular HGB Conc 33.4 g/dL (31.8-35.4); Mean Corpuscular Volume 95.6 fl (81-99); Mean Platelet Volume 10.1 fl (7.4-10.4); Monocytes # 0.3 K/mm3 (0.1-1.0); Monocytes % 2.4 % (1.7-9.3); Neutrophils # 9.6 K/mm3 (1.8-7.8); Neutrophils % 89.1 % (37.0-80.0); Platelet Count 133 K/mm3 (142-424); Red Blood Count 2.69 M/mm3 (4.20-5.40); White Blood Count 10.8 K/mm3 (4.8-10.8)
[2023-03-14 10:21] LABS: MANUAL DIFFERENTIAL MANUAL DIFFERENTIAL (MANUAL DIFF)
[2023-03-14 10:25] LABS: VBG Base Excess -14.6 mmol/L (-2.4-2.3); VBG HCO3 11.5 mmol/L (23-30); VBG Oxygen Saturation 99.7 % (50-70); VBG PH 7.32 mmol/L (7.31-7.41); VBG PO2 224.3 mmol/L (28-40); VBG Total CO2 12.2 mmol/L (23-27)
[2023-03-14 10:25] LABS: Microscopic, Urine URINE MICROSCOPIC (MICROSCOPIC)
[2023-03-14 10:27] LABS: VBG PCO2 22.7 mmol/L (35-51)
[2023-03-14 10:27] LABS: Chloride 96 mmol/L (98-107); Sodium 139 mmol/L (136-145)
[2023-03-14 10:28] LABS: Appearance,Urine TURBID (Clear); Blood, Urine 3+ (Negative); Color,Urine YELLOW (Yellow); Glucose,Urine (UA) Negative (Negative); Ketones,Urine Negative (Negative); Leukocyte Esterase,Urine 3+ (Negative); Nitrate,Urine Negative (Negative); Protein,Urine 2+ (Negative); Specific Gravity, Urine 1.015 (1.005-1.030)
[2023-03-14 10:29] LABS: Creatinine Clearance Estimated 8 mL/min (50-200); Estimated Glomerular Filt Rate 10 ml/min (>60); GFR (African American) 12 ML/MIN (>60)
[2023-03-14 10:30] LABS: Alanine Aminotransferase 78 U/L (12-78); Albumin Level 3.1 g/dl (3.5-5.0); Albumin/Globulin Ratio 0.9 (1.1-1.8); Alkaline Phosphatase 184 U/L (38-126); Anion Gap 34.5 mEq/L (5-15); Aspartate Amino Transferase 105 U/L (14-36); Bilirubin,Total 1.4 mg/dl (0.2-1.3); Calcium 7.4 mg/dl (8.4-10.2); Carbon Dioxide 11 mmol/L (22.0-30.0); Globulin 3.5 g/dL (1.3-3.2); Glucose 251 mg/dl (74-100); Total Protein,Serum 6.6 g/dl (6.3-8.2)
[2023-03-14 10:31] LABS: Magnesium 1.5 mg/dl (1.6-2.3)
[2023-03-14 10:33] LABS: Coronavirus 19, PCR Not Detected (NotDetected); Influenza A, PCR Not Detected (NotDetected); Influenza B, PCR Not Detected (NotDetected)
[2023-03-14 10:33] LABS: Activated Partial Thrombo Time 25.4 seconds (22.8-30.6); Prothrombin Time 11.8 seconds (10.1-12.5)
--- NOTE | 2023-03-14 10:33 | ECG_ITS ---
APPROVED REPORT Exam: Resting ECG HR:122 bpm ECG Measurements Heart Rate 122 AXES QRSd 92 QRS -13 QT 419 T 21 QTc 491 Conclusion ATRIAL FIBRILLATION WITH RAPID VENTRICULAR RESPONSE LOW QRS VOLTAGE IN EXTREMITY LEADS [QRS DEFLECTION < 0.5 mV IN LIMB LEADS] ANTEROSEPTAL MYOCARDIAL INFARCTION , OF INDETERMINATE AGE [40+ ms Q WAVE IN V1-V4] ABNORMAL ECG UNCONFIRMED REPORT Electronically signed by : Dominguez Ortiz MD 03/14/2023 15:51:30
[2023-03-14 10:39] LABS: Benzodiazepines Screen,Urine Negative ng/ml (<200)
[2023-03-14 10:39] LABS: Bilirubin,Urine 1+ (Negative)
[2023-03-14 10:40] LABS: Amphetamine/Metha Screen,Urine Negative ng/ml (<1000); Barbiturates Screen,Urine Negative ng/ml (<200)
[2023-03-14 10:41] LABS: Cannabinoid Screen,Urine Negative ng/ml (<50)
[2023-03-14 10:42] LABS: Cocaine Screen,Urine Negative ng/ml (<300)
[2023-03-14 10:43] LABS: Methadone Screen,Urine Negative ng/ml (<300); Opiate Screen,Urine Negative ng/ml (<300)
[2023-03-14 10:44] LABS: Anisocytosis 1+; Hypochromasia 1+; Lymphocytes % 6 % (10-50); Monocytes % 3 % (2-9); Neutrophils % 91 % (42-76); Platelet Estimate Normal; Total Cells Counted 100
[2023-03-14 10:44] LABS: Phencyclidine Screen,Urine Negative ng/ml (<25)
--- NOTE | 2023-03-14 10:44 | PC.NURSE ---
XR at bedside. Family at bedside.
[2023-03-14 10:46] LABS: Blood Urea Nitrogen 80 mg/dl (7-17); Potassium 2.5 mmoL/L (3.5-5.1)
[2023-03-14 10:47] LABS: Bacteria,Urine 4+ /lpf; Lactic Acid 15.1 mmol/L (0.7-2.1); Squamous Epithelial Cell,Urine Occasional #/hpf (0-5)
--- NOTE | 2023-03-14 10:47 | PC.NURSE ---
Critical results received, Potassium 2.5, BUN 80, Lactate 15.1. MD notified.
--- NOTE | 2023-03-14 10:55 | HMH.EDGENADL ---
Discharge Plan Disposition Patient Disposition: Admitted As Inpatient Condition: Critical Clinical Impressions Clinical Impression: Status epilepticus, Acute hypoxemic respiratory failure, Acute UTI, Atrial fibrillation with rapid ventricular response Acute renal failure Qualifiers: Acute renal failure type: unspecified Qualified Code(s): N17.9 - Acute kidney failure, unspecified Aspiration pneumonia Qualifiers: Aspiration pneumonia type: unspecified Discharge ED Provider: Corie Leslie General Adult HPI General Chief complaint: Seizure Stated complaint: SEIZURE Time Seen by Provider: 03/14/23 10:15 Mode of Arrival: EMS Source of Information: EMS Limitations: Altered Mental Status Description of Symptoms (Recalled from ER Triage Doc. by RN): Per EMS, family originally called 911 d/t difficulty breathing secondary to concerns of aspiration (vomiting). Per EMS, patient started seizing enroute with an estimated total time of 22 mins. Upon arrival to ED, pt observed with continued seizure like activity (convulsions) with a NRB in place at 15L, 76% O2 sat. EMS denies medications given [employer]. History of Present Illness HPI narrative: This patient is a 67-year-old female with complicated medical history of CKD who was previously on dialysis until approximately 1 year ago, CVA with left-sided deficits, cirrhosis, diabetes, CAD, and chronic debility who is cared for by her son and [id number] at home presented to the emergency department via EMS for evaluation. According to EMS, they were called out to the scene for difficulty breathing. Family had found the patient this morning covered in vomit and she had increased work of breathing, so they were concerned that she had aspirated. Once EMS loaded her onto the stretcher, the patient began having a generalized tonic-clonic seizure. They did not have the keys to their medications so were unable to give her any abortive medications. She seized for approximately 22 minutes. Upon arrival, the patient is having a generalized tonic-clonic seizure and is thus unable to contribute to history. Once family arrived and I had a discussion with them, the patient has a signed DNR order. They also stated that her baseline waxes and wanes. Some days she is able to speak and communicate, but other days she is completely unresponsive. They state that she has been going downhill ever since her son approximately 6 months ago, and they feel that she has given up. They state that it is very hard to get her to eat or drink anything, and she is starving herself to . Patient has no known history of seizures or seizure disorder. Related Data Home Medications Medication Instructions Recorded Confirmed amitriptyline 100 mg tablet 50 mg PO DAILY Mood 03/14/23 03/14/23 atorvastatin 40 mg tablet 40 mg PO DAILY Cholesterol 03/14/23 03/14/23 ergocalciferol (vitamin D2) 1,250 1,250 mcg PO WEEKLY Supplement 03/14/23 03/14/23 mcg (50,000 unit) capsule furosemide 40 mg tablet 40 mg PO DAILYP PRN Fluid 03/14/23 03/14/23 levothyroxine 50 mcg tablet 50 mcg PO AM Thyroid 03/14/23 03/14/23 omeprazole 40 mg capsule,delayed 40 mg PO DAILY Acid reflux 03/14/23 03/14/23 release oxycodone-acetaminophen 10 mg-325 1 tab PO TID Chronic pain 03/14/23 03/14/23 mg tablet rifaximin 550 mg tablet (Xifaxan) 550 mg PO BID IBS 03/14/23 03/14/23 ursodiol 300 mg capsule 300 mg PO DAILY Cholesterol 03/14/23 03/14/23 Allergies Allergy/AdvReac Type Severity Reaction Status Date / Time pseudoephedrine Allergy Mild Verified 07/01/22 10:38 [From Actifed] triprolidine [From Actifed] Allergy Mild Verified 07/01/22 10:38 [facility] Disclaimer: The information contained in this section may have been updated after the patient was seen, as this information can be updated by other users. Social History Smoking Status: Unknown if ever smoked alcohol intake:
[2023-03-14 11:20] LABS: Free T4 (Free Thyroxine) 2.35 ng/dl (0.78-2.19)
[2023-03-14 11:23] LABS: NT Pro Brain Natriuretic Pep. 3310 pg/mL (0-125)
[2023-03-14 11:29] LABS: Troponin I 0.31 ng/ml (0.00-0.034)
--- NOTE | 2023-03-14 11:32 | PC.NURSE ---
Critical result received, Troponin 0.31. MD notified.
--- NOTE | 2023-03-14 11:41 | ECG_ITS ---
APPROVED REPORT Exam: Resting ECG HR:90 bpm ECG Measurements Heart Rate 90 AXES [place] 192 P -21 QRSd 96 QRS 23 QT 433 T 37 QTc 481 Conclusion SINUS RHYTHM LOW QRS VOLTAGE [QRS DEFLECTION < 0.5/1.0 mV IN LIMB/CHEST LEADS] ANTEROSEPTAL MYOCARDIAL INFARCTION , OF INDETERMINATE AGE [40+ ms Q WAVE IN V1-V4] ABNORMAL ECG UNCONFIRMED REPORT Electronically signed by : Dominguez Ortiz MD 03/14/2023 15:50:56
--- NOTE | 2023-03-14 11:49 | PC.NURSE ---
Called Pharm for abx dosing verification
[2023-03-14 11:57] LABS: Creatine Kinase 80 U/L (30-135)
--- NOTE | 2023-03-14 12:13 | PC.NURSE ---
House notified of admission. Dr. Flood at bedside.
--- NOTE | 2023-03-14 12:29 | PC.NURSE ---
Next of Kin, Nik Whalen (Son) @ [phone] & [id number], February @ [phone]
[2023-03-14 12:30] LABS: Ammonia 220 umol/L (9-30)
--- NOTE | 2023-03-14 12:32 | PC.NURSE ---
Attempted report x 1
--- NOTE | 2023-03-14 12:51 | EXP.HP ---
History of Present Illness *Admission Date: 03/14/23 *Reason for visit:: seizure, AMS *History of present illness: Ms. Whalen is a 67-year-old female with past medical history of cirrhosis, CKD, history of CVA, diabetes, CAD, chronic debility who is cared for at home by family. She presented to the ER via EMS for evaluation after new onset seizure. Family states that the patient has been losing extensive weight over the past 4 months since the of her son. She has stopped eating and given up per their report. They have a hard time getting her to take her medications. Her alertness has been waxing and waning, she was alert enough yesterday to eat some but that is the first she has eaten in many days. EMS was contacted because she had an episode at home of seizure-like activity. Once EMS loaded her onto the stretcher to bring her to the hospital, she had a generalized tonic-clonic seizure that proceeded for an extended period of time until receiving abortive medication. Did not receive medication until arriving to the ER, proceeded to seize for over 10 minutes. Patient frankly obtunded. Extensive work-up begun on arrival. Labs concerning for multiple abnormalities including creatinine of 4.5, lactate of 15, respiratory alkalosis and metabolic acidosis, urinalysis consistent with UTI, and elevated troponin. ER discussed case with family and they do not want to pursue aggressive treatment for her new onset seizure nor further potential treatment including dialysis for her renal failure. They states she has been getting worse and would not want aggressive measures. ER contacted medicine for admission to [facility] for further care. Ammonia obtained after decision to admit, ammonia elevated 220. Admitted for further goals of care discussion and inability of patient to go home. [facility] Disclaimer: The information contained in this section may have been updated after the patient was seen, as this information can be updated by other users. Medical History Atrial fibrillation Congestive heart failure Diabetes mellitus, type 2 History of gastroesophageal reflux (GERD) Hyperlipidemia Parkinson disease Seizure disorder Family History No significant family history Social History Smoking Status: Unknown if ever smoked alcohol intake: never substance use type: denies use current occupational status: unemployed and disabled Travel in the last 8 weeks: None household members: other housing: [facility]iary Meds Home Medications and Allergies Home Medications Medication Instructions Recorded Confirmed Type amitriptyline 100 mg tablet 50 mg PO DAILY Mood 03/14/23 03/14/23 History atorvastatin 40 mg tablet 40 mg PO DAILY Cholesterol 03/14/23 03/14/23 History ergocalciferol (vitamin D2) 1,250 1,250 mcg PO WEEKLY Supplement 03/14/23 03/14/23 History mcg (50,000 unit) capsule furosemide 40 mg tablet 40 mg PO DAILYP PRN Fluid 03/14/23 03/14/23 History levothyroxine 50 mcg tablet 50 mcg PO AM Thyroid 03/14/23 03/14/23 History omeprazole 40 mg capsule,delayed 40 mg PO DAILY Acid reflux 03/14/23 03/14/23 History release oxycodone-acetaminophen 10 mg-325 1 tab PO TID Chronic pain 03/14/23 03/14/23 History mg tablet rifaximin 550 mg tablet (Xifaxan) 550 mg PO BID IBS 03/14/23 03/14/23 History ursodiol 300 mg capsule 300 mg PO DAILY Cholesterol 03/14/23 03/14/23 History New Prescriptions to Start Prescriptions: Allergies Allergy/AdvReac Type Severity Reaction Status Date / Time pseudoephedrine Allergy Mild Verified 03/14/23 14:46 [From Actifed] triprolidine [From Actifed] Allergy Mild Verified 03/14/23 14:46 Exam Data for Last 24 hours Vital signs and Labs for Last 24 Hours: Temp Pulse Resp BP Pulse Ox 99.5 F 94 H 32 H 116/
--- NOTE | 2023-03-14 12:59 | PC.NURSE ---
Report provided to ACOSTA Arenas
--- NOTE | 2023-03-14 13:13 | PC.NURSE ---
Pharmacy called regarding the rescheduling of Jeannera. New scheduled time for 9:00 pm. Deepa RN notified. 2 of 2 Potassium 20 meq given to RN to initiate during handoff.
[2023-03-14 14:14] LABS: Reflex Lactic Add Lactic Reflex
--- NOTE | 2023-03-14 14:21 | EXP.PHA.CONS ---
Pharmacy Consult Date: 03/14/23 Time: 14:22 Referring provider: DR. MOYA Reason for Consult:: VANCOMYCIN DOSING Allergies Allergy/AdvReac Type Severity Reaction Status Date / Time pseudoephedrine Allergy Mild Verified 07/01/22 10:38 [From Actifed] triprolidine [From Actifed] Allergy Mild Verified 07/01/22 10:38 Home Medications Medication Instructions Recorded Confirmed Type amitriptyline 100 mg tablet 50 mg PO DAILY Mood 03/14/23 03/14/23 History atorvastatin 40 mg tablet 40 mg PO DAILY Cholesterol 03/14/23 03/14/23 History ergocalciferol (vitamin D2) 1,250 1,250 mcg PO WEEKLY Supplement 03/14/23 03/14/23 History mcg (50,000 unit) capsule furosemide 40 mg tablet 40 mg PO DAILYP PRN Fluid 03/14/23 03/14/23 History levothyroxine 50 mcg tablet 50 mcg PO AM Thyroid 03/14/23 03/14/23 History omeprazole 40 mg capsule,delayed 40 mg PO DAILY Acid reflux 03/14/23 03/14/23 History release oxycodone-acetaminophen 10 mg-325 1 tab PO TID Chronic pain 03/14/23 03/14/23 History mg tablet rifaximin 550 mg tablet (Xifaxan) 550 mg PO BID IBS 03/14/23 03/14/23 History ursodiol 300 mg capsule 300 mg PO DAILY Cholesterol 03/14/23 03/14/23 History New Prescriptions to Start Prescriptions: Height: 1.7 m Weight: 40.823 kg Laboratory Results:: Laboratory Results - last 24 hr 03/14/23 10:05: Urine Color Yellow, Urine Appearance Turbid, Urine pH 8.0, Ur Specific [place] 1.015, Urine Protein 2+, Urine Glucose (UA) Negative, Urine Ketones Negative, Urine Blood 3+, Urine Nitrate Negative, Urine Bilirubin 1+ A, Urine Urobilinogen 1.0, Ur Leukocyte Esterase 3+ A, Urine RBC 10-20, Urine WBC 5-10, Ur Squamous Epith Cells Occasional, Urine Bacteria 4+ 03/14/23 10:05: WBC 10.8, RBC 2.69 L, Hgb 8.6 L, Hct 25.7 L, MCV 95.6, MCH 32.0 H, MCHC 33.4, RDW 17.0, Plt Count 133 L, MPV 10.1, Neut % (Auto) 89.1 H, Lymph % (Auto) 7.9 L, [place] % (Auto) 2.4, Eos % (Auto) 0.4, Baso % (Auto) 0.1, Neut # (Auto) 9.6 H, Lymph # (Auto) 0.9, [place] # (Auto) 0.3, Eos # (Auto) 0.1, Baso # (Auto) 0.0, Total Counted 100, Neutrophils % (Manual) 91 H, Lymphocytes % (Manual) 6 L, Monocytes % (Manual) 3, Platelet Estimate Normal, Hypochromasia 1+, Anisocytosis 1+ 03/14/23 10:05: Sodium 139, Potassium 2.5 L*, Chloride 96 L, Carbon Dioxide 11 L, Anion Gap 34.5 H, BUN 80 H, Creatinine 4.50 H, Estimated Creat Clear 8, Estimated GFR 10 L*, Est GFR ( Amer) 12 L*, Glucose 251 H, Calcium 7.4 L, Total Bilirubin 1.4 H, AST 105 H, ALT 78, Alkaline Phosphatase 184 H, Total Protein 6.6, Albumin 3.1 L, Globulin 3.5 H, Albumin/Globulin Ratio 0.9 L, TSH 9.90 H 03/14/23 10:05: Lactate 15.1 H 03/14/23 10:05: PT 11.8, INR 1.10, APTT 25.4 03/14/23 10:05: Free T4 2.35 H 03/14/23 10:05: Magnesium 1.5 L 03/14/23 10:05: Troponin I 0.31 H, NT-Pro-B Natriuret Pep 3310 H 03/14/23 10:05: Total Creatine Kinase 80 03/14/23 10:10: Urine Opiates Screen Negative, Urine Methadone Screen Negative, Ur Barbituates Screen Negative, Ur Phencyclidine Scrn Negative, Ur Amphetamines Screen Negative, U Benzodiazepines Scrn Negative, Urine Cocaine Screen Negative, U Marijuana (THC) Screen Negative 03/14/23 10:18: VBG pH 7.32, VBG pCO2 22.7 L, VBG pO2 224.3 H, VBG HCO3 11.5 L, VBG Total CO2 12.2 L, VBG O2 Saturation 99.7 H, VBG Base Excess -14.6 L 03/14/23 10:26: SARS-CoV-2 (PCR) Not detected, Influenza A Untype (PCR) Not detected, Influenza Type B (PCR) Not detected 03/14/23 12:03: Ammonia 220 H Assessment and Plan Assessment and plan all Dx Assessment and Plan for all problems:: Pharmacokinetic dosing service Objective: Patient: Floor: Age: 67 yo Serum creatinine: 4.5 mg/dL Height: 67.0 Inches Weight (kg): 40.8 Assessment: IBW (kg): 61.60 Dosing wt(kg): 40.8 Estimated Creatinine clearance (ml/min): 8.0 CRCL method: Cockcroft and Gault using ibw(default). Drug selected: Vancomycin Loading dose (mg): 0 Vd (liters): 30.6
[2023-03-14 14:26] LABS: Lactic Acid Follow Up (RFLX 1) 4.7 mmol/L (0.7-2.1)
[2023-03-14 14:32] LABS: Troponin I 3.13 ng/ml (0.00-0.034)
--- NOTE | 2023-03-14 15:27 | PC.NURSE ---
DNR status verified over the phone with family upon arrival to floor. Placed on chart. Rectal temp obtained, 94.1. Hypothermic blanket placed on pt.
--- NOTE | 2023-03-14 15:56 | PC.NURSE ---
Attempted to notify family change of pt status. No answer.
[2023-03-14 16:21] LABS: Reflex Lactic (2 hrs) Add Lactic Reflex
--- NOTE | 2023-03-14 16:47 | DIET.NUTRFU ---
RD consulted secondary to low jailene scale, Patient is noted to have decline over the the next 6 months. Has a signed DNR with no aggressive treatment at this point. Patient is NPO, has been having trouble swallowing and intake has been poor. Will continue to monitor wishes for any enteral nutrition.
[2023-03-14 17:23] LABS: Lactic Acid Follow up (RFLX 2) 3.9 mmol/L (0.7-2.1)
--- NOTE | 2023-03-14 17:25 | PC.NURSE ---
Pt moved from Step Down to Comfort Care. Family at bedside.
--- NOTE | 2023-03-14 17:29 | PC.WOUNDNOTE ---
coccyx LLE. Scabs and hematoma
--- NOTE | 2023-03-14 17:30 | PC.WOUNDNOTE ---
multiple scabs to hand (R) heel ANA MARIA RODGERS
[2023-03-14 17:33] LABS: Troponin I 4.67 ng/ml (0.00-0.034)
--- NOTE | 2023-03-14 17:52 | EXP.EVENT.NO ---
Advance care planning note: Active diagnosis: Hepatic encephalopathy, kidney failure, UTI, sepsis, end-stage cirrhosis, cachexia The patient's active diagnoses are of sufficient risk that focused discussion on advanced care planning is indicated in order to allow the patient to thoughtfully consider personal goals of care; and, if situations arise that prevent the ability to personally give input, to ensure appropriate representation of their personal desires through documentation or informed surrogate decision makers. Discussion: Persons present and participating in discussion: [id number] February, daughter, son Discussion: Extensive discussion about patient's chronic medical conditions, continued decline over the past 4 to 6 months, failure to take her medications. Patient's presentation consistent with worsening acute on chronic conditions. Seizure secondary to elevated ammonia and hepatic encephalopathy. Family does not want to pursue treatments and wants to focus on comfort as that would be the patient's wishes. Would like to transition to comfort care. Time spent: Total time spent [id number] in education and discussion directly related to advance care plannin minutes Javy Dougherty MD
--- NOTE | 2023-03-14 22:05 | EXP.DEATH.NO ---
Pronouncement Note Date and Time of Date of : 03/14/23 Time of : 22:00 PCOD Preliminary cause of : Hepatic encephalopathy Contributing Factors (1) Hepatic encephalopathy: (2) Diabetes mellitus: (3) Liver failure: (4) Acute UTI: (5) Status epilepticus: (6) Acute renal failure: (7) Hypokalemia: Additional Data Confirmation of : no pulse, no respirations and no heart sounds Family: at bedside Attending/PCP notified?: Yes Attending physician: Javy Dougherty MD Was code activated?: No Autopsy requested?: No cellophane wrapping examiner notified?: Yes Organ bank notified?: Yes Advance directives: Yes
--- NOTE | 2023-03-14 23:14 | PC.NURSE ---
Addendum entered by Coral Rowland RN 03/15/23 00:53: 0050-[facility] left w/ pt body at this time Addendum entered by Coral Rowland RN 03/14/23 23:38: 2328- Pt ruled out by ANDREAS, permission given to release body to home 2333- Spoke to [facility] in [place], they are en route to [facility] Original Note: 2157- pt asystole on monitor, this RN listened to heart sounds and they were absent. Confirmed w/ Benjamin, ACOSTA. Brianne Craig APRN notified at this time. 2199- pt pronounced at this time by Brianne Craig APRN 2213- Notified ANDREAS at this time, by Deepa Lou, [facility] inside sales account representative. Deepa will screen pt and will notify family once screening is done. Deepa instructed this RN to place ice packs on pt and to not notify home until determined if a case or not. 2233- Notified Eric Coley Um Specialist about pt , pt was ruled out by manager home healthcare at this time 224- provision of signed by Madison Whalen, family left at this time 230- post mortem care given at this time 230- Deepa Lou from [facility] called with an update saying they are still screening pt information at this time and will call back with an answer shortly
--- NOTE | 2023-03-15 07:08 | EXP.DEATH.DS ---
Discharge Sum: Prov Provider Primary care physician: Javy Oneill Visit Care Team Role Provider Type Javy Oneill Primary Care Provider Referring Corie LeslieDO Emergency Provider ER Physician Javy Dougherty MD Admit Provider Staff Physician Attending Provider Admitting clinician: Javy Dougherty Attending physician on admission: Javy Dougherty Consults: 03/14/23 15:03 Nutrition Consult [CONS] Routine Comment: Reason for Nutrition Consult: Adrian Score Pronouncing clinician: Brianne Craig Discharge Sum: Diag PCOD Cause of : Hepatic coma Contributing Factors (1) Hepatic encephalopathy: (2) Diabetes mellitus: (3) Liver failure: (4) Acute UTI: (5) Status epilepticus: (6) Acute renal failure: (7) Hypokalemia: Discharge Sum: Summary Date and Time Date of admission: 03/14/23 13:15 Date of : 03/14/23 Time of : 22:00 Hospital Course prior to Hospital Course Information: Ms. Whalen is a 67-year-old female with past medical history of cirrhosis, CKD, history of CVA, diabetes, CAD, chronic debility who is cared for at home by family.? She presented to the ER via EMS for evaluation after new onset seizure.? Family states that the patient has been losing extensive weight over the past 4 months since the of her son.? She has stopped eating and given up per their report.? They have a hard time getting her to take her medications.? Her alertness has been waxing and waning, she was alert enough yesterday to eat some but that is the first she has eaten in many days.? EMS was contacted because she had an episode at home of seizure-like activity.? Once EMS loaded her onto the stretcher to bring her to the hospital, she had a generalized tonic-clonic seizure that proceeded for an extended period of time until receiving abortive medication.? Did not receive medication until arriving to the ER, proceeded to seize for over 10 minutes.? Patient frankly obtunded.? Extensive work-up begun on arrival.? Labs concerning for multiple abnormalities including creatinine of 4.5, lactate of 15, respiratory alkalosis and metabolic acidosis, urinalysis consistent with UTI, and elevated troponin.? ER discussed case with family and they do not want to pursue aggressive treatment for her new onset seizure nor further potential treatment including dialysis for her renal failure.? They states she has been getting worse and would not want aggressive measures.? ER contacted medicine for admission to [facility] for further care. Ammonia obtained after decision to admit, ammonia elevated 220.? Admitted for further goals of care discussion and inability of patient to go home. Family discussion about goals of care. Given her progressive liver failure, hepatic encephalopathy, worsening kidney failure, mixed acid-base disturbances, and new onset seizures, family states patient would not want to pursue aggressive life prolonging measures. Wanted to proceed with hospice style/comfort care. Received initial dose of antibiotics in the ER. These were all discontinued. Patient had no more seizures. Remained comfortable in obtunded state until her passing. Summary Details: Seizure on admission, stopped with dose of benzodiazepine. Was loaded with Keppra. Patient remained obtunded and unresponsive to stimuli, GCS of 3. Goals of care discussion with family, decision to make patient comfort care. She subsequently within several hours of admission from her decompensated chronic conditions. Additional Data Confirmation of as documented by pronouncing clinician: no pulse, no respirations, no heart sounds and pupils fixed and dilated Family: at bedside Attending/PCP notified?: Yes Attending physician: Javy Dougherty MD
== END 2023-03-15 00:50 | disposition expired | DRG 441 ==
LOC: ER 11:54 → 2ND 12:17
PROVIDERS: Admitting Provider Internal Medicine Adolescent Medicine; Emergency Provider Emergency Medicine; PCP Family Medicine; Visit Provider Internal Medicine Adolescent Medicine
DX: K76.82 Hepatic encephalopathy (principal); G93.41 Metabolic encephalopathy; J69.0 Pneumonitis due to inhalation of food and vomit; J96.01 Acute respiratory failure with hypoxia; I21.4 Non-ST elevation (NSTEMI) myocardial infarction; N17.9 Acute kidney failure, unspecified; N39.0 Urinary tract infection, site not specified; G40.801 Other epilepsy, not intractable, with status epilepticus; I48.91 Unspecified atrial fibrillation; I50.9 Heart failure, unspecified; E87.5 Hyperkalemia; G20 Parkinson's disease; E87.6 Hypokalemia; K74.60 Unspecified cirrhosis of liver; E11.9 Type 2 diabetes mellitus without complications
CPT/HCPCS: 36415; 51702; 70450; 71045; 80053; 80305; 81001; 82140; 82550; 82803; 83605; 83735; 83880; 84439; 84443; 84484; 85007; 85025; 85610; 85730; 87040; 87086; 87088; 87186; 93005; 99291; C9803; G0378; J1953; U0003; U0005